=== PATIENT | female | born 1935 | race Caucasian/White ===

== ENCOUNTER 2017-04-17 12:27 | Inpatient (IN) | payer MEDICARE, OTHER ==
[2017-04-17] MEDS ORDERED: Pantoprazole 40 MG VIAL ONE (12:39)
[2017-04-17] MEDS ORDERED: Pantoprazole 80 MG, Admixture Fee 1 EACH in Sodium Chloride 0.9% 100 ML IVP SCH (12:45)
[2017-04-17] MEDS ORDERED: EPINEPHrine 1 MG/10 ML Abboject SYRINGE ONE (12:47)
[2017-04-17] MEDS ORDERED: EPINEPHrine 1 MG/ML AMP ONE (12:47)
[2017-04-17 12:53] LABS: Actual Bicarbonate (HCO3a) 15.2 mEq/L (22-26); Base Excess (BEa) -13.4 mEq/L (0 (+/-) 2.5); CO2 Tension 45.2 mmHg (35.0-45.0); Hematocrit-ABG 39.8 % (36.0-47.0); Hemoglobin (Hb) 13.5 g/dL (12.0-16.0); O2 Tension (PaO2) 81.7 mmHg (80.0-100.0); pH, Arterial 7.14 (7.35-7.45)
[2017-04-17 12:54] LABS: Analyzer IN Cardio ER; Calcium, Ionized 1.1 mmol/L (1.12-1.30); Puncture Site LRA
[2017-04-17 12:56] LABS: Hemoglobin 13.8 g/dL (12.0-16.0); Mean Corpuscular Hemoglobin 28.7 pg (27.0-31.0); Mean Corpuscular Volume 92.6 fl (81.0-99.0); Mean Platelet Volume 8.6 fL (7.4-10.4); Platelet Count 205 thou/uL (130-400); RBC Distribution Width 13.2 % (11.5-14.5); Red Blood Cell (RBC) Count 4.81 mill/uL (4.20-5.40); White Blood Cell (WBC) Count 21.3 thou/uL (4.8-10.8)
[2017-04-17 13:10] LABS: ALT (SGPT) 13 U/L (8-55); AST (SGOT) 21 U/L (5-34); Albumin 2.9 g/dL (3.4-4.8); Alkaline Phosphatase 63 U/L (40-150); Anion Gap 14 mmol/L (10-20); BUN (Urea Nitrogen) 32 mg/dL (9.8-20.1); Bilirubin, Total 0.4 mg/dL (0.2-1.2); Calc. Creatinine Clearance 0 mL/min (70-130); Calcium 8.7 mg/dL (7.8-10.44); Carbon Dioxide 13 mmol/L (23-31); Chloride 116 mmol/L (98-107); Estimated GFR-MDRD 34; Globulin 1.9 g/dL (2.4-3.5); Glucose 134 mg/dL (83-110); Potassium 3.3 mmol/L (3.5-5.1); Protein, Total 4.8 g/dL (6.0-8.3); Sodium 140 mmol/L (136-145)
[2017-04-17 13:12] LABS: Band 18 % (5-11); Lymphocytes 10 % (21-51); MDiff Complete? YES; Monocytes 4 % (0-10); Neutrophil 66 % (42-75); PLT Morphology Comment Appears Adequate; RBC Morphology Normal; Reactive Lymphocytes 1 % (0-10)
[2017-04-17] MEDS ORDERED: Sodium Bicarb 50 MEQ/50 ML Abboject 8.4% SYRINGE ONE ×2 (13:17→13:20)
[2017-04-17] MEDS ORDERED: Sodium Bicarbonate 2.4 MEQ/5 ML ONE (13:19)
[2017-04-17] MEDS ORDERED: Hydrocortisone Sod Succ/PF 100 mg/2 ml Vial ONE (13:23)
[2017-04-17] MEDS ORDERED: SODIUM CHLORIDE IVPB PRN (13:28)
[2017-04-17] MEDS ORDERED: ADMIXTURE FEE IVPB PRN (13:28)
[2017-04-17] MEDS ORDERED: KETALAR IVPB PRN (13:28)
[2017-04-17] MEDS ORDERED: Hydrocortisone Sod Succ/PF 100 mg/2 ml Vial IVP SCH (13:30)
[2017-04-17 13:35] LABS: PTT 64.3 SEC (22.9-36.1)
[2017-04-17 13:36] LABS: Prothrombin Time 45.6 SEC (12.0-14.7)
[2017-04-17 13:38] LABS: INR-International Normal Ratio 4.6
[2017-04-17 13:39] LABS: Platelet Count 205 thou/uL (130-400)
[2017-04-17 13:53] LABS: FSP-Qualitative ABNORMAL (Normal); FSP-Semiquantitative >320 mcg/mL (Less than 5)
[2017-04-17 13:56] LABS: D-Dimer Test Greater than 20.00 *mcg/mL (0.27-0.43)
[2017-04-17 13:59] LABS: Fibrinogen 19 mg/dL (253-463)
--- NOTE | 2017-04-17 14:05 | RAD ---
CHEST 1 VIEW: Date: 04/17/17 HISTORY: Emergency exam. COMPARISON: Chest 1 view dated 04/17/17. FINDINGS: Lungs are hypoinflated. The endotracheal tube tip is just above the kadie. No pneumothorax. IMPRESSION: Limited exam due to hypoinflation. Endotracheal tube tip is just above the kadie. Recommend retracte d 1-2 cm with repeat radiograph. POS: [facility]
[2017-04-17] MEDS ORDERED: Potassium Chloride 40 MEQ, Admixture Fee 1 EACH in Sodium Chloride 0.9% 250 ML 250 ML IVPB SCH (14:30)
[2017-04-17 15:05] LABS: CKMB 2.2 ng/mL (0-6.6); Troponin I 0.019 ng/mL (< 0.028)
[2017-04-17] MEDS ORDERED: Dextrose 5% in Water 1,000 ML IV PRN (15:44)
[2017-04-17] MEDS ORDERED: Ventilator Sedation Protocol 1 EACH FS SCH (15:44)
[2017-04-17] MEDS ORDERED: Dextrose 50% Abboject 50 ML SYRINGE SLOW IVP PRN (15:44)
[2017-04-17 16:10] LABS: Bilirubin Negative (Negative); Blood, Urine Moderate (Negative); Clarity CLOUDY (Clear); Glucose, Urine (Dipstick) 100 mg/dL (Negative); Leukocyte Moderate (Negative); Nitrite Negative (Negative); Protein, Urine (Dipstick) 100 mg/dL (Neg-Trace); Specific Gravity, Urine 1.011 (1.002-1.036); pH, Urine 6.5 (5.0-9.0)
[2017-04-17 16:12] LABS: Bacteria/HPF None Seen HPF (None Seen); Hyaline Casts/LPF 4-6 HYALINE CAST LPF (0-3 Hyaline); Pathc Cast-AUWi Flag 0.94 (0-2.49); Squamous Epithelial 0-3 HPF (0-3)
[2017-04-17 16:13] LABS: Yeast-AUWi Flag 36.3 (0-25.0)
[2017-04-17 16:22] LABS: Yeast-All Forms None Seen HPF (None Seen)
[2017-04-17 16:36] LABS: #Lymphocytes 0.5 thou/uL (1.20-3.40); #Monocytes 1.1 thou/uL (0.11-0.59); #Neutrophils 17.4 thou/uL (1.40-6.50); %Basophils 0.2 % (0.0-1.0); %Eosinophils 0.2 % (0.0-10.0); %Lymphocytes 2.8 % (21.0-51.0); %Monocytes 5.8 % (0.0-10.0); %Neutrophils 91.1 % (42.0-75.0); Hemoglobin 13.6 g/dL (12.0-16.0); Mean Corpuscular Hemoglobin 29.2 pg (27.0-31.0); Mean Corpuscular Volume 88.5 fl (81.0-99.0); Mean Platelet Volume 8.2 fL (7.4-10.4); Platelet Count 157 thou/uL (130-400); RBC Distribution Width 12.9 % (11.5-14.5); Red Blood Cell (RBC) Count 4.65 mill/uL (4.20-5.40); White Blood Cell (WBC) Count 19.1 thou/uL (4.8-10.8)
[2017-04-17 16:38] LABS: Actual Bicarbonate (HCO3a) 16.4 mEq/L (22-26); CO2 Tension 37.7 mmHg (35.0-45.0); O2 Tension (PaO2) 91.2 mmHg (80.0-100.0); pH, Arterial 7.26 (7.35-7.45)
[2017-04-17 16:39] LABS: Calcium, Ionized 1.2 mmol/L (1.12-1.30); Hematocrit-ABG 39.9 % (36.0-47.0); Hemoglobin (Hb) 13.4 g/dL (12.0-16.0); Puncture Site ALINE
[2017-04-17 16:41] LABS: ALV-art Gradient 146.875 (0-20)
[2017-04-17 16:52] LABS: Fibrinogen 61 mg/dL (253-463)
[2017-04-17] MEDS ORDERED: Fentanyl 20 MCG/ML 250 ML IVPB SCH (16:52)
[2017-04-17] MEDS ORDERED: Morphine 2 MG/ML SYRINGE SLOW IVP PRN (16:52)
[2017-04-17] MEDS ORDERED: DISCONTINUE PREVIOUS NARCOTIC PAIN MEDICATIONS AND BENZODIAZEPINES FS SCH (16:52)
[2017-04-17] MEDS ORDERED: Propofol 1,000 MG/100 ML VIAL IV PRN (16:52)
[2017-04-17] MEDS ORDERED: fentaNYL Citrate/PF 2,000 MCG in Sodium Chloride 0.9% 60 ML IV SCH (16:52)
[2017-04-17 16:53] LABS: PTT 40.6 SEC (22.9-36.1); Prothrombin Time 19.1 SEC (12.0-14.7)
[2017-04-17 16:54] LABS: INR-International Normal Ratio 1.6
--- NOTE | 2017-04-17 16:56 | CON ---
DATE OF CONSULTATION: 04/17/2017 GI INPATIENT CONSULTATION NOTE REQUESTING PHYSICIAN: Dr. Castaneda. REASON FOR CONSULTATION: GI bleeding. HISTORY OF PRESENT ILLNESS: Parul Pennington is an 82-year-old woman who was previously seen my GI col league, Dr. Jaclyn Treadwell. She has no significant past gastrointestinal history. Back in 2004, she had an EGD showing mild esophagitis and mild gastritis as well as some fundic gland polyps and she boyd d a colonoscopy also in 2004, which showed only small internal hemorrhoids and tortuous colon. She e vidently has no chronic gastrointestinal symptoms and she was evidently doing well all day yesterday until just this morning. At that time, family describes that she had sudden onset of acute severe ab dominal pain which was generalized. This was followed by extreme fatigue and then she started passin g bright red blood per rectum. She had several episodes of what was described as dark maroon stools prior to presentation. Upon arrival to the [facility], she was hypotensive an d she was transferred here. She has remained hypotensive and appears to be in DIC. She has signific ant acidosis. Hemoglobin is 13.8, but she has leukocytosis. No urine output since arrival and notab ly INR is elevated at 4.6. Lactic acid elevated at 6.6, fibrinogen elevated to 19. She is currently on a Levophed drip and blood pressures are stabilizing. Her mental status has declined and she is n oncommunicative with me. She is not manifesting any signs of being in pain and her abdomen is not ri gid. She has been evaluated by Dr. Rosales. Suspicion is possible acute mesenteric ischemia and isc hemic bowel. She had a CT of the abdomen and pelvis prior to transfer and this demonstrated possible thickening in the duodenum as well as possible thickening at the splenic flexure. This was a noncon trast study. The patient is currently receiving empiric antibiotics as well as IV Protonix, IV Levop hed and the plan is for her to be admitted to the ICU. REVIEW OF SYSTEMS: Unable to obtain from the patient as she is noncommunicative due to altered menta l status. PAST MEDICAL HISTORY: Hypertension, right-sided breast cancer status post modified radical mastectom y, left eye blindness, bilateral knee replacement, type 2 diabetes, hyperlipidemia, cholecystectomy, coronary artery disease, and lumbar spinal stenosis. ALLERGIES: PENICILLIN, SULFA, OXYCODONE, intolerant to STATINS. OUTPATIENT MEDICATIONS: Omeprazole 20 mg daily, aspirin 325 mg at bedtime, fish oil, Aleve, lisinopr il/hydrochlorothiazide, gemfibrozil, calcium carbonate, anastrozole, allopurinol, Xanax. FAMILY HISTORY: Noncontributory. SOCIAL HISTORY: She is . No smoking or alcohol use. She has a lot of good family support he re. I spoke at length with her daughter and other relatives. PHYSICAL EXAMINATION: VITAL SIGNS: Pulse 83, blood pressure 129/83 on Levophed drip, 100% oxygen saturation on ventilator. GENERAL: Critically ill 82-year-old woman lying in bed, mechanically ventilated and intubated. SKIN: She is pale, no jaundice, no rashes were palpable. EYES: No scleral icterus. Pupils do appear reactive. ENT: She is endotracheally intubated. LYMPH: No submandibular or supraclavicular lymphadenopathy. HEART: Regular rate and rhythm. LUNGS: Bilateral vent sounds. No wheezing appreciated. ABDOMEN: Nondistended. Bowel sounds are absent. Soft. Patient does not manifest any signs of pain upon deep palpation throughout the abdomen. No organomegaly appreciated. EXTREMITIES: Trace pretibial edema, mostly this is adipose tissue. VESSELS: Radial pulses 2+ bilaterally. NEUROLOGIC: The patient does not follow commands. LABORATORY DATA: WBC elevated to 21.3, hemoglobin normal at 13.8, platelets 205, MCV normal at 92. INR is elevated at 4.6. aPTT elevated to greater than 250, fibrinogen elevated to 19. She is acidot ic with pH 7.14, pO2 81, and pCO2 45. Lactic acid climbing from 5.9-6.6, troponin negative. BNP onl y 60, sodium 140, potassium 3.3, BUN 32, creatinine 1.45, glucose 134. FOBT is positive. LFTs are a ll normal at this time with total bilirubin 0.4, alkaline phosphatase 63, AST 21, ALT 14, and albumin 2.9. IMAGING STUDIES: CT of the head shows no acute processes. Chest x-ray shows no acute processes. Raquel ngs are hypoinflated. CT of the abdomen and pelvis showed areas of possible mild thickening in the d uodenum and at the splenic flexure, absent gallbladder, normal appearing liver and spleen. No free f luid or free air, this was as a noncontrast study. ASSESSMENT AND PLAN: 1. Gastrointestinal bleeding without anemia. 2. Severe coagulopathy, possible DIC. 3. Severe acidosis. 4. Abnormal CT showing possible duodenal and splenic flexure thickening. 5. Altered mental status. I discussed the case at length with Dr. Rosales. We both share our woody rn for possible acute ischemic bowel. The patient has had some gastrointestinal bleeding, but presen juan with acute abdominal pain. Note hemoglobin is actually normal at 13.8 despite her coagulopathy. The patient is really not stable for surgery or for endoscopy at this time. Recommend treatment of her DIC and aggressive resuscitation as you are doing. She will be admitted to the ICU. Keep her n. p.o. We will reevaluate tomorrow morning. I am not sure whether there would be any utility to upper endoscopy, but can reevaluate at that time. Continue the IV Protonix in the meantime as well. GI will continue to follow along. Please call with questions or concerns.
[2017-04-17 17:01] LABS: ALT (SGPT) 18 U/L (8-55); AST (SGOT) 35 U/L (5-34); Albumin 3.5 g/dL (3.4-4.8); Alkaline Phosphatase 68 U/L (40-150); Anion Gap 18 mmol/L (10-20); BUN (Urea Nitrogen) 33 mg/dL (9.8-20.1); Bilirubin, Total 1.3 mg/dL (0.2-1.2); Calc. Creatinine Clearance 46 mL/min (70-130); Calcium 9.2 mg/dL (7.8-10.44); Carbon Dioxide 17 mmol/L (23-31); Chloride 112 mmol/L (98-107); Estimated GFR-MDRD 33; Globulin 2.1 g/dL (2.4-3.5); Glucose 157 mg/dL (83-110); Potassium 3.6 mmol/L (3.5-5.1); Protein, Total 5.6 g/dL (6.0-8.3); Sodium 143 mmol/L (136-145)
[2017-04-17] MEDS: Sodium Chloride 0.9% 1,000 ML IV SCH (18:22)
--- NOTE | 2017-04-17 18:40 | CON ---
DATE OF CONSULTATION: 04/17/2017 CONSULTING PHYSICIAN: Dr. Rosales. REASON FOR CONSULTATION: Critical care management.45 min cc time HISTORY OF PRESENT ILLNESS: This is an 82-year-old female who presented to the emergency room earlier today with hematochezia of sudden onset. She received massive transfusion as well as reversal of coagulopathy with Kcentra. She also received FFP. History is obtained from talking with physician and reviewing the notes from the chart as the patient is intubated and is unable to give history. PAST MEDICAL HISTORY: 1. Diabetes mellitus type 2. 2. Coronary artery disease. 3. Obesity. 4. Myocardial infarction. 5. Left total knee arthroplasty. 6. Diverticulitis. 7. Breast cancer with right mastectomy. 8. Left eye blindness. 9. Deep venous thrombosis. 10. Hypertension. PAST SURGICAL HISTORY: Cholecystectomy, left total knee arthroplasty, right mastectomy. SOCIAL HISTORY: Apparently lives alone, does not consume alcohol or tobacco. FAMILY MEDICAL HISTORY: Remarkable for heart disease. MEDICATIONS PRIOR TO ADMISSION: List not known at this time. ALLERGIES: OXYCODONE, PENICILLINS, SULFONAMIDES. REVIEW OF SYSTEMS: Twelve point review of systems cannot be obtained as the patient is currently on mechanical ventilation, intubated. PHYSICAL EXAMINATION: VITAL SIGNS: Heart rate 80, blood pressure 143/83, O2 sat 91%, respiratory rate 21. GENERAL: The patient is intubated and is on mechanical ventilation. She will wake up and nod to questions. HEENT: Pupils react. Sclerae are anicteric. Oropharynx clear. NECK: No adenopathy or JVD. LUNGS: Diminished breath sounds in the bases with some crackles bilaterally. CARDIOVASCULAR: S1, S2, slightly tachycardic without murmur. ABDOMEN: Obese, soft, nontender to deep palpation. EXTREMITIES: No clubbing, cyanosis, or edema. NEUROLOGIC: Moves all 4 extremities. SKIN: No rashes, bruising or jaundice. LABORATORY DATA: White blood cell count 21.3, hematocrit 44.6, platelet count 205 with 66% neutrophils, 18% bands. INR was 4.6. D-dimer greater than 20, pH 7.14, pCO2 of 45, pO2 of 82 that was on SIMV rate 12, tidal volume 500, PEEP 5, pressure support 10, FiO2 of 60%. Sodium 140, potassium 3.3, chloride 116, CO2 of 13, BUN 32, creatinine 1.4, glucose 134. Lactate 6.6, troponin 0.019, TSH 1.55, albumin 2.9. IMAGING: Chest x-ray showed hint of the endotracheal tube being in the left main stem bronchus. There is some atelectasis in the left base. CT of the abdomen demonstrated duodenal splenic flexure areas of thickening, perhaps representing the duodenitis or colitis. ASSESSMENT: 1. Hypovolemic shock from blood loss due to hematochezia. 2. Acute respiratory failure. 3. Severe metabolic acidosis. 4. Coagulopathy. PLAN: The patient is currently being resuscitated with blood products. She is on mechanical ventilation. I will adjust the settings. The patient is having coagulation parameters and H and H monitored. She will be transfused as needed. I will follow along with you. JUANJO
[2017-04-17] MEDS: Norepinephrine 8 MG/0.9% NS 250 ML IVPB SCH ×2 (19:06→23:23)
--- NOTE | 2017-04-17 19:49 | HP ---
CHIEF COMPLAINT: GI bleeding and shock. HISTORY: Ms. Pennington is an 82-year-old woman who presented to the [place] ER with abdominal pain and weakness. By report, she had been totally normal the night before, called a friend the following morning to ask her for help. She stated that she needed to get up to the bathroom, but was too weak to do so. When her friend went to help her, she was exhibiting severe abdominal pain and was very unsteady on her feet and fell when she tried to ambulate. They called an ambulance and took her to [place] where she passed two hard balls of stool and then a large amount of blood mixed with stool. This was red in color, but not bright red, no reports of clots. During this time, the patient had hypotension and decreased level of consciousness and was intubated. She had a CT scan performed at [place] with no IV and no p.o. contrast. This showed possible thickening of the duodenum and possible stranding around the splenic flexure, but due to lack of contrast, this was inconclusive. The patient does have known cardiovascular disease and calcified arteries on her noncontrast CT, but no history of food fear, or weight loss and is not on any blood thinners. She has no history of arrhythmias or coagulopathy. She was transferred to [place] and received 3 units of packed red blood cells and 2 units of plasma and had a femoral line placed by the ER doctor. I was consulted at that point and the patient was receiving a unit of FFP and had been started on Levophed to support her blood pressure. By report when she arrived in the emergency room, her blood pressure was in the 60s systolic, but on Levophed it came up to the 90s-100s systolic. She had a Harris catheter placed in [place], but no urine in the Harris catheter bag on her arrival or during the initial part of her hospital stay. She had a fluctuating level of consciousness; would open her eyes and sometimes respond to yes/no questions. Her family and friends all deny any preexisting abdominal complaints. She had just seen her hotel security officer for some shortness of breath and he had performed a stress test, but they had not received the results yet. I contacted the hotel security officer's partner who is aviation program manager this weekend and she looked up the results and this did show some anterior ischemia. She had a fairly normal heart catheterization 10 years ago, however. Since her arrival in the emergency room, she has had a few smears of blood tinged stools, but no large amount of bloody stool. Only her ABG was back at the time that I first evaluated her and this showed severe acidosis with a base deficit of 13, so she was given IV bicarbonate for this and I ordered additional FFP and cryoprecipitate based on labs in [place] which showed evidence of coagulopathy. PAST MEDICAL HISTORY: Hypertension, hyperlipidemia, breast cancer, and osteoarthritis. She has diet controlled diabetes and negative colonoscopy in her 70s. PAST SURGICAL HISTORY: Right modified radical mastectomy, bilateral knee replacements, cholecystectomy and appendectomy. ALLERGIES: Her family reports that she is allergic to PENICILLIN and SULFA DRUGS and she has intolerance to statins documented in her chart. OUTPATIENT MEDICATIONS: Include lisinopril/hydrochlorothiazide 20/12.5 mg, although her family is unsure whether she takes 1 or 2 of these twice a day, amlodipine 0.5 mg p.o. daily, clonidine p.r.n. high blood pressure, aspirin 325 mg p.o. daily, allopurinol 100 mg p.o. daily, omeprazole 20 mg p.o. b.i.d., lisinopril 20 mg p.o. daily although her family is also unsure whether she is taking this, gemfibrozil 600 mg p.o. b.i.d., fish oil and a multivitamin containing calcium, magnesium, zinc, and vitamin D3. FAMILY HISTORY: Noncontributory. REVIEW OF SYSTEMS: Not obtainable, but per the family, she did not have any complaints prior to her current illness and has not had any episodes of bleeding previously. PHYSICAL EXAMINATION: GENERAL: The patient is awake and intermittently responsive to yes/no questions. At the time that I first evaluated her, she indicated that she had some tenderness to palpation of her abdomen, but no pain when I was not pushing on her abdomen. She does not exhibit any rigidity, rebound or guarding and I was unable to identify any focally tender area. She has a healed right upper quadrant incision and no palpable masses. Digital rectal examination revealed some reddish brown stool without marycruz blood or clots. No palpable masses and no large amount of stool in the rectal vault. NECK: Supple, without lymphadenopathy. No cervical bruits. HEART: Regular in its rate and rhythm without murmurs, rubs or gallops. LUNGS: Clear to auscultation bilaterally. EXTREMITIES: Warm and well perfused. She has palpable radial pulses, although I do not appreciate pedal pulses. She has very minimal edema at the ankle which is nonpitting. NEUROLOGIC: Unable to fully evaluate; the patient does move her extremities to command. PSYCHIATRIC: Unable to evaluate although she intermittently answers yes/no questions appropriately. During her stay in the emergency room, her blood pressure and heart rate remained stable on the Levophed. She did begin to have some urine output after the FFP and became more responsive as well through her ER stay. She continued to deny abdominal pain, but did endorse some tenderness to palpation. Again, this was nonfocal. LABORATORY: Her other labs began to come back during her ER stay. Her white count was elevated at 21, it had been 17 in [place]. Hematocrit has not changed much from 41-44 after 3 units of blood, platelets were still normal at 205. She did have a bandemia of 18. Her coags continued to be abnormal. Her PTT which had been greater than 250, was 64.3, INR 4.6 and fibrinogen 19. Electrolytes showed low potassium of 3.3, bicarbonate 13, BUN and creatinine were elevated at 32 and 1.45, up slightly from [place] when they had been 30 and 1.35. Her LFTs were unremarkable, but her lactate was high at 6.6. Troponin at [place] had been normal as had a BNP. IMAGING: I reviewed the CT and I agree with the written report. ASSESSMENT: Lower gastrointestinal bleed of unclear etiology. Ischemic and infectious colitis are both within the differential diagnosis. Diverticular bleeding is possible, although less likely. The patient exhibited severe abdominal pain this morning according to her family, but is apparently pain free at this time. So, hopefully this was a low flow rather than an occlusive episode of ischemia, from which her bowel could potentially recover. She has not had any evidence of ongoing significant blood loss, but will require close monitoring and continued resuscitation. Given her severe coagulopathy, she is not a candidate for endoscopy or surgery at this time. I believe the bleeding is lower gastrointestinal in etiology, not upper. I have discussed her case with Dr. Toro of Gastroenterology who was also been at the patient's bedside. I have spoken with the family. She is in very critical condition at this point with multiorgan system failure with anuria, respiratory failure, hypotension requiring pressors and coagulopathy which may represent DIC. She will need to be aggressively treated medically to stabilize her and may be able to tolerate endoscopy tomorrow. We are working aggressively to correct her coagulopathy and we will recheck her coags after she has gotten her second unit of FFP and her cryoprecipitate. At that point, I plan to recheck all of her labs to see if she needs additional platelets or blood products as well. However, as I said , it does not appear that she has ongoing severe bleeding. I have written admit orders to the ICU and requested hourly urine output, monitoring, so that we can assess the adequacy of her resuscitation. I have written for antibiotics to cover colitis and a proton pump inhibitor drip for stress ulcer prophylaxis. During her time in the emergency room, an NG tube was placed and this had bilious nonbloody output, so I do not believe that she currently has any upper GI bleeding. A radial arterial line was placed in the emergency room to more closely monitor her blood pressure and monitor her need for continued pressors. We will try to get the Levophed off if her condition improves. If she develops signs of peritonitis, she may require surgical exploration. Her family is aware of the very serious nature of her illness and they want to pursue aggressive treatment. They are unaware of any advanced directive or living will and she is a FULL CODE at this time. A total of 3 hours of critical care was spent in the evaluation and management of this patient independence of procedures. JUANJO
--- NOTE | 2017-04-17 19:49 | OP ---
PROCEDURE PERFORMED: Placement of left radial arterial line. DESCRIPTION OF PROCEDURE: After informed consent was obtained, the left radial artery was identified and the skin prepped with alcohol and an attempt was made to access this, but the wire would not thr ead. An ultrasound was used to direct an attempt at a higher level and the arterial line was able to be threaded successfully into the radial artery using the Seldinger technique. The arterial line wa s secured to the monitoring line and the pressures corresponded with cuff pressures. The arterial li ne was secured to the skin with sutures and tape and the wrist was stabilized on the wrist board. Es timated blood loss was minimal. There were no complications. There were no specimens. Patient jevon rated the procedure well.
[2017-04-17] MEDS: metroNIDAZOLE 500 MG in Premix Bag 1 BAG IVPB SCH (20:50)
--- NOTE | 2017-04-17 21:37 | CON ---
DATE OF CONSULTATION: 04/17/2017 INDICATION FOR CONSULTATION: An 82-year-old female who was admitted with septic shock and DIC with G I bleeding. We were asked to see her for cardiac evaluation. She does have a history of coronary ar ange disease in the past. She recently underwent stress testing and was found to have anterior wall ischemia on a nuclear study. She has had previous evaluation in the past and they were unremarkable. She had a study performed in 2015, which showed no evidence of ischemia. She did have a cardiac ca theterization in 2006 which showed some indication of coronary artery disease with a less than 20% st enosis both in the right coronary and the mid left anterior descending artery with a normal ejection fraction. She has continued to have a normal ejection fraction and was recently seen in the office w ithout any complications or complaints from a cardiac standpoint. She apparently lives at home and d eveloped the sudden onset of abdominal pain and hematochezia that presented to the emergency room and also was found to be pancytopenia; however, when developed, she had coagulopathy what appears to be DIC. INR was 4.6. She was given platelets, 3 units of packed red blood cells, 4 units of fresh froz en plasma, and one cryoprecipitate. At this time, she is actually intubated; however, is alert. She seems to comprehend and understand. She does try to nod her head to answer some questions, otherwis e appears to be more stable. Her blood pressure is 104/47, heart rate is 84 at this time. Respirato ry rate is 21. O2 saturations are actually 96% and she is afebrile. Her EKG did show a normal sinus rhythm with a right bundle-branch block and left anterior fascicular block, but no acute changes oth erwise are noted and she appears to be stable from a cardiac standpoint otherwise. She has been comp laining of some dyspnea on exertion and recently was evaluated in the office by doing the stress test for the dyspnea. She had denied any chest pain at that time. She has had some problems with low bl ood pressures in the past and blood pressure medications have also been adjusted. PAST MEDICAL HISTORY: Significant for mild coronary artery disease, bilateral knee replacement. She is blind in the left eye. She has had a history of DVT in the past. She has had a cholecystectomy. She has history of spinal stenosis, peripheral vascular disease, dyslipidemia, diabetes, and hypert ension. She has had breast cancer with a right mastectomy. She has had a cholecystectomy. ALLERGIES: She is allergic to OXYCODONE, SULFA, SULFONAMIDE ANTIBIOTICS and PENICILLIN. FAMILY HISTORY: Noncontributory at this time. SOCIAL HISTORY: No alcohol or tobacco abuse. REVIEW OF SYSTEMS: Not obtainable. The patient is on the ventilator at this time, but recently in t he office, had been doing quite well except for the dyspnea. She denied any chest pain, palpitations , or syncope. She did have some lower extremity edema; however, on the recent evaluation in the [facility]. PHYSICAL EXAMINATION: GENERAL: Reveals an elderly female who is on the ventilator. She is alert. VITAL SIGNS: Her blood pressure as noted above is now 136/66, heart rate is 91 and regular. HEENT: Shows the head to be normocephalic, atraumatic. Carotid pulses are present. I cannot hear a ny significant bruits at this time. CHEST: Clear to auscultation anteriorly. CARDIOVASCULAR: Reveals a regular rhythm. She has a 2/6 systolic murmur at the base. Otherwise, no significant abnormalities were noted. ABDOMEN: Soft and nontender. Positive bowel sounds are present. EXTREMITIES: Showed no clubbing or cyanosis. She does have a large contusion of right lateral leg a fter a previous fall, apparently. Pedal pulses are difficult to palpate, but popliteal pulses are pr esent. NEUROLOGIC: She appears to be awake and alert, but is on the ventilator at this time. SKIN: Warm and dry. LABORATORY DATA: Shows hemoglobin of 13.6 with WBC of 19.1, platelet count was 157, potassium was 3. 6, BUN 33, creatinine 1.49. Lactic acid was 6.0. Total bilirubin was 1.3. Her troponin I was negat ricco. D-dimer was greater than 20. She also had 18 bands noted on the differential from the CBC. IMPRESSION AND PLAN: 1. Acute gastrointestinal bleed which could possibly due to ischemic bowel. This has been evaluated by the general surgeons, also she will be seen by the floor molder. She appears to have only minimal bleeding at this time. She did have one small stool since being in the Intensive Care Unit, which appears to be more watery, but just a small amount of blood. 2. Coagulopathy. I hope this will be stabilized after she has been given medical treatment. 3. Acute respiratory failure. She remains on the ventilator. 4. Hypovolemic shock with metabolic acidosis. 5. Disseminated intravascular coagulation. The INR was 4.6. We will continue to monitor very caremikey tran with you. Her stress test, however, was abnormal, but she appears to be relatively stable at th is time. She denied any chest pain. An EKG does not show any acute ST segment changes to indicate a ny type of ischemia and cardiac enzymes remain negative, we will be more than happy to continue to fo llow the patient with you. 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 We will continue to monitor this also. I will try and determine whether or not this is not a new finding in this lady. She has had a previous right bundle-branch block with a left anterior fa scicular block in the past. At this time, from a cardiac standpoint, she appears to be stable.
[2017-04-17] MEDS ORDERED: Sodium Bicarb 50 MEQ/50 ML Abboject 8.4% SYRINGE IVP SCH (22:15)
[2017-04-17] MEDS ORDERED: Sodium Chloride 0.9% 1,000 ML IV SCH (22:15)
[2017-04-17 23:46] LABS: CO2 Tension 28.1 mmHg (35.0-45.0); pH, Arterial 7.41 (7.35-7.45)
[2017-04-17 23:47] LABS: Actual Bicarbonate (HCO3a) 17.4 mEq/L (22-26); Base Excess (BEa) -5.7 mEq/L (0 (+/-) 2.5); O2 Tension (PaO2) 58.2 mmHg (80.0-100.0)
[2017-04-17 23:48] LABS: Calcium, Ionized 1.2 mmol/L (1.12-1.30); Puncture Site ALINE
[2017-04-17 23:49] LABS: ALV-art Gradient 191.875 (0-20)
[2017-04-18 00:08] LABS: INR-International Normal Ratio 1.3; PTT 31.2 SEC (22.9-36.1); Prothrombin Time 16.5 SEC (12.0-14.7)
[2017-04-18 00:24] LABS: Band 23 % (5-11); Hemoglobin 12.6 g/dL (12.0-16.0); Lymphocytes 4 % (21-51); MDiff Complete? YES; Mean Corpuscular HGB CONC 33.9 g/dL (32.0-36.0); Mean Corpuscular Hemoglobin 29.5 pg (27.0-31.0); Mean Platelet Volume 8.3 fL (7.4-10.4); Neutrophil 73 % (42-75); PLT Morphology Comment Appears Adequate; Platelet Count 158 thou/uL (130-400); Red Blood Cell (RBC) Count 4.28 mill/uL (4.20-5.40); White Blood Cell (WBC) Count 15.5 thou/uL (4.8-10.8)
[2017-04-18 01:03] LABS: Anion Gap 14 mmol/L (10-20); BUN (Urea Nitrogen) 36 mg/dL (9.8-20.1); Calc. Creatinine Clearance 43 mL/min (70-130); Calcium 8.6 mg/dL (7.8-10.44); Carbon Dioxide 19 mmol/L (23-31); Chloride 115 mmol/L (98-107); Estimated GFR-MDRD 30; Glucose 144 mg/dL (83-110); Sodium 144 mmol/L (136-145)
[2017-04-18 03:47] LABS: INR-International Normal Ratio 1.3
[2017-04-18 03:48] LABS: PTT 33.4 SEC (22.9-36.1)
[2017-04-18] MEDS: metroNIDAZOLE 500 MG in Premix Bag 1 BAG IVPB SCH ×4 (03:50→21:21)
[2017-04-18] MEDS: Sodium Chloride 0.9% 1,000 ML IV SCH ×2 (03:50→08:15)
[2017-04-18 04:01] LABS: Band 35 % (5-11); Hemoglobin 12.7 g/dL (12.0-16.0); Lymphocytes 3 % (21-51); MDiff Complete? YES; Mean Corpuscular HGB CONC 33.1 g/dL (32.0-36.0); Mean Corpuscular Hemoglobin 28.8 pg (27.0-31.0); Mean Platelet Volume 8.4 fL (7.4-10.4); Monocytes 2 % (0-10); Neutrophil 60 % (42-75); PLT Morphology Comment Appears Adequate; Platelet Count 165 thou/uL (130-400); RBC Distribution Width 13.1 % (11.5-14.5); Red Blood Cell (RBC) Count 4.39 mill/uL (4.20-5.40); White Blood Cell (WBC) Count 13.1 thou/uL (4.8-10.8)
[2017-04-18 04:04] LABS: ALT (SGPT) 18 U/L (8-55); AST (SGOT) 32 U/L (5-34); Albumin 3.2 g/dL (3.4-4.8); Alkaline Phosphatase 48 U/L (40-150); Anion Gap 15 mmol/L (10-20); BUN (Urea Nitrogen) 38 mg/dL (9.8-20.1); Calc. Creatinine Clearance 40 mL/min (70-130); Calcium 8.5 mg/dL (7.8-10.44); Carbon Dioxide 18 mmol/L (23-31); Chloride 115 mmol/L (98-107); Estimated GFR-MDRD 28; Globulin 1.9 g/dL (2.4-3.5); Glucose 136 mg/dL (83-110); Protein, Total 5.1 g/dL (6.0-8.3); Sodium 144 mmol/L (136-145)
[2017-04-18] MEDS: Pantoprazole 80 MG in Sodium Chloride 0.9% 100 ML IVP SCH ×3 (06:04→17:08)
[2017-04-18 07:02] LABS: Actual Bicarbonate (HCO3a) 17.8 mEq/L (22-26); Base Excess (BEa) -8.3 mEq/L (0 (+/-) 2.5); CO2 Tension 31.1 mmHg (35.0-45.0); Hematocrit-ABG 35.5 % (36.0-47.0); Hemoglobin (Hb) 12.2 g/dL (12.0-16.0); O2 Tension (PaO2) 76.1 mmHg (80.0-100.0); pH, Arterial 7.38 (7.35-7.45)
[2017-04-18 07:03] LABS: ALV-art Gradient 170.225 (0-20); Calcium, Ionized 1.2 mmol/L (1.12-1.30); Puncture Site ALINE
[2017-04-18] MEDS ORDERED: Sodium Chloride 0.9% 1,000 ML IV SCH (08:00)
[2017-04-18] MEDS: Lorazepam 2 MG/ML VIAL SLOW IVP PRN ×5 (08:13→19:20)
--- NOTE | 2017-04-18 08:41 | RAD ---
CHEST 1 VIEW: Date: 04/18/17 HISTORY: Intubated patient. COMPARISON: Chest 1 view from prior day. FINDINGS: Patient intubated with endotracheal tube tip in good position. Enteric tube tip is in the gastric bod y, side port at GE junction. Moderate size right effusion. Atelectatic changes both lung bases. IMPRESSION: 1. Moderate size right pleural effusion, slightly increased. 2. Enteric tube tip at the gastric body with side port at GE junction. Recommend advancing 3.0 cm. POS: JAMIL
[2017-04-18] MEDS: Norepinephrine 8 MG/0.9% NS 250 ML IVPB SCH ×2 (09:22→19:00)
--- NOTE | 2017-04-18 09:34 | PRG ---
DATE OF SERVICE: 04/18/2017 Thirty-five minutes critical care time. SUBJECTIVE: The patient remains intubated in the Critical Care Unit. She is able to wake up and und erstand speech and follow commands, three daughters are in the room with her today. PHYSICAL EXAMINATION: VITAL SIGNS: Temperature is 99.7 with a T-max of 99.7, pulse 78, blood pressure 135/56. She is curr ently on Levophed at 35 mcg per minute. She is receiving fentanyl for sedation. A 24-hour intake wa s 3880 plus what was received in the ER, output has been 738. HEENT: Pupils are reactive. Sclerae are anicteric. Oropharynx clear. NECK: No JVD. LUNGS: Clear to auscultation anteriorly. CARDIOVASCULAR: S1, S2 regular, without murmur. ABDOMEN: Tender to deep palpation. There are no bowel sounds. EXTREMITIES: No clubbing, cyanosis, or edema. LABORATORY DATA: PH 7.38, pCO2 of 31, pO2 of 76 on SIMV rate 24, tidal volume 500, PEEP 5, pressure support 10, FIO2 40%. White blood cell count 13, hemoglobin 12, hematocrit 38.2, platelet count 165. INR is 1.3, PTT 33.4, sodium 144, potassium 4, chloride 115, CO2 of 18, BUN 38, creatinine 1.7, glu cose 136. Albumin 3.2. Chest x-ray shows what appears to be a small right pleural effusion versus l obar atelectasis. ASSESSMENT: 1. Likely ischemic colitis with large volume lower gastrointestinal bleeding which has now stopped. 2. History of diabetes mellitus type 2. 3. Acute respiratory failure requiring mechanical ventilation. 4. Metabolic acidosis which has improved. 5. Coagulopathy, which has resolved. PLAN: 1. We will try to decrease the Levophed as the high dose of Levophed is probably not the best thing for ischemic colitis. 2. Add Ativan for sedation to the fentanyl. 3. No plans to wean mechanical ventilation until the ischemic colitis issue is better worked up by [facility] en[facility] Surgery and GI. I reviewed her orders and agree with the antibiotics and IV fluids.
[2017-04-18 09:41] LABS: Lactic Acid 2.2 mmol/L (0.5-2.2)
--- NOTE | 2017-04-18 11:24 | PRG ---
DATE OF SERVICE: 04/18/2017 GI INPATIENT DAILY PROGRESS NOTE SUBJECTIVE: Ms. Pennington has remained intubated and on Levophed for blood pressure support. Her coagu lopathy appears to have been corrected. She has regained consciousness and is able to answer questio ns and she reports only some mild abdominal pain which appears to be on the left side. As far as sto ol output, she has had no melena. She did have a small amount of bright red blood with some stool th is morning. Her hemoglobin has remained stable currently at 12.7, INR down to 1.3. Lactate has impr robert down to 2.2, but creatinine continues to climb and urine output has been minimal. PHYSICAL EXAMINATION: VITAL SIGNS: Blood pressure 120/49 on Levophed, heart rate 76, 100% oxygen saturation on ventilator, temperature is 99.7 degrees. GENERAL: Critically ill, intubated, able to nod and shake her head and answered to questions. HEART: Regular rate and rhythm. LUNGS: Decreased breath sounds in the right base. ABDOMEN: Bowel sounds hypoactive, but present, soft, no guarding or rebound tenderness. There is so me tenderness to palpation in the left upper quadrant. EXTREMITIES: No peripheral edema. LABORATORY STUDIES: Sodium 144, potassium 4.0, BUN 38, creatinine 1.72. Lactic acid down to 2.2. L FTs remain normal, total bilirubin 1.0, alkaline phosphatase 48, AST 32, ALT 18. Urinalysis shows gr eater than 50 WBCs, INR down to 1.3. ABG much improved with pH 7.38, WBC 13.1, hemoglobin 12.7, and platelets 165. Urine cultures growing gram negative rods. Blood culture showing no growth to date. ASSESSMENT AND PLAN: 1. Systemic shock. Initially this was thought to perhaps represent hemorrhagic shock, but I really do not think that is the case. Her hemoglobin looks great and declined only minimally yesterday. Th ere has been really minimal overt bleeding overnight in this morning from the gastrointestinal tract. She remains hypotensive requiring Levophed and I wonder if this represents septic shock. Note, she does have urinary tract infection. The acuity of her presentation is a little bit unusual for this. However, I do not think that this all represents a consequence of massive blood loss. 2. Gastrointestinal bleeding, appears to be lower gastrointestinal source. 3. Coagulopathy, much improved. 4. Acute renal failure, likely secondary to shock. 5. Abnormal CT of the gastrointestinal tract showing possible thickening in the duodenum and around the splenic flexure. My impression regarding her gastrointestinal bleeding is that this is likely a consequence of acute ischemic colitis which is a consequence of her hypotensive state upon presentati on. This looks less and less like acute catastrophic mesenteric ischemia. If this does represent is chemic colitis, then the prognosis should be good from a gastrointestinal perspective. I discussed t he case with Dr. Rosales. At this point, we will plan to administer bowel preparation through the or ogastric tube tonight, and proceed with colonoscopy and esophagogastroduodenoscopy tomorrow. I discu ssed this with the patient's family as well.
--- NOTE | 2017-04-18 12:39 | PRG ---
DATE OF SERVICE: 04/18/2017 SUBJECTIVE: Ms. Pennington denies any pain or shortness of breath. She does still report tenderness to palpation of her abdomen diffusely, but no place more than another. She is more alert today and communicating with a white board. Her Levophed was turned up slightly overnight, but is now back down to 25. Urine output has been 20-40 mL per hour. She did receive some additional cryoprecipitate and fluids last night. This morning her heart rate and blood pressure are normal on Levophed and her coagulopathy has corrected. Her H&H are stable and her nurse reports that she has only had a few smears of bloody stool. OBJECTIVE: HEART: She has a systolic murmur, but her heart rate is regular and her rhythm is regular. LUNGS: Clear anteriorly. ABDOMEN: Still quiet, diffusely mildly tender, but she does not exhibit rigidity, rebound, or guarding. EXTREMITIES: Warm and well perfused with normal capillary refill. LABORATORY DATA: Her labs have all improved; her lactate and fibrinogen have corrected. The only exception is her BUN and creatinine have continued to slowly climb. Urine culture showed gram negative rods, but fewer than 5000 colony forming units, so ID and sensitivities have not been performed. ASSESSMENT: Likely ischemic colitis of unclear etiology. Her family does report that her blood pressure fluctuates and she has had some drops in her blood pressure. She had a fairly severe coagulopathy, but this has corrected, so it may have been primarily consumption rather than disseminated intravascular coagulation. I cannot find any source for sepsis that could have set this off. She did have some gram negative rods in her urine, but only less than 5000 colony forming units and her chest x-ray remained fairly clear except for a small effusion. Given her clinical improvement and correction of her lactate, I think it is unlikely that she has necrotic bowel, but ischemic bowel is still the most likely diagnosis. I have discussed her case with Dr. Toro of Gastroenterology, and he is going to perform a gentle bowel prep and plan on endoscopy tomorrow. As long as full thickness necrosis is not seen, we will continue to manage this conservatively. JUANJO
[2017-04-18] MEDS: Sodium Bicarbonate 150 MEQ in Dextrose 5% in Water 1,000 ML IV SCH ×2 (15:17)
[2017-04-18] MEDS ORDERED: GoLYTELY 4,000 ml Bottle PER TUBE SCH (18:00)
--- NOTE | 2017-04-18 22:01 | CON ---
DATE OF CONSULTATION: 04/18/2017 CONSULTING PHYSICIAN: Silvia Scott M.D. REQUESTING PHYSICIAN: Dr. Rosales. REASON FOR CONSULTATION: Acute kidney injury and metabolic acidosis. IMPRESSION: 1. Acute kidney injury. This is likely hemodynamically mediated in the context of low blood pressur e and massive gastrointestinal blood loss. 2. Metabolic acidosis related to acute kidney injury plus or minus ischemic bowel with . PLAN: 1. I am in support of weaning this patient off pressors if we suspect ischemic bowel. 2. Change the current normal saline to a bicarb based infusion to avoid reexpansion acidosis and hop efully the correction of the metabolic acidosis will improve the hemodynamics the pressors to t he point that one can begin to successfully wean off the pressors. 3. Avoid potentially nephrotoxic agents and renally dose all medications. HISTORY OF PRESENT ILLNESS: History is that of an 82-year-old female patient transferred for [facility], where the patient presented with a sudden onset of massive gastrointestinal bleed. The pat ient on presentation was also noted to be severely coagulopathic with a picture of DIC/consumption co agulopathy. The patient received various amounts of blood products prior to being transferred to [facility] place already intubated. I could not get much of any history from this patient, who is already int ubated. As a result of the finding of metabolic acidosis and rising creatinine and low urinary outpu t on presentation, decision has been taken by the primary team to involve Renal in the management of this case. PAST MEDICAL HISTORY: Significant for type 2 diabetes, coronary artery disease, status post ME, dive rticulitis, breast carcinoma status post right mastectomy, left eye blindness, DVT, and hypertension. SOCIAL HISTORY: According to record, no alcohol, no tobacco. Lives alone. No illicit drug use. FAMILY HISTORY: Not significantly related to the presenting illness except easy bruisability, which is noted on the patient and also the daughter. ALLERGIES: OXYCODONE, PENICILLIN, and SULFONAMIDES. REVIEW OF SYSTEMS: Could not be obtained from this patient given the fact the patient is intubated a nd sedated. PHYSICAL EXAMINATION: GENERAL: The patient was found to be sedated and intubated and noted with the following vital signs. VITAL SIGNS: Blood pressure 117/45 with a pulse of 72, respiratory rate of 24, O2 sat 94% on pressor s. HEENT: Unremarkable for endotracheal tube in place. CARDIOVASCULAR SYSTEM: First and second heart sounds were heard. RESPIRATORY SYSTEM: Reveals vented sounds. DIGESTIVE SYSTEM: revealed positive bowel sounds. EXTREMITIES: Chronic peripheral lymphedema. NEUROLOGIC: The patient is sedated and intubated. SUMMARY: An 82-year-old female patient, who presented here status post massive gastrointestinal blee d with picture of consumptive coagulopathy as well as acute kidney injury. Thank you for this consultation. We will follow with you.
[2017-04-19] MEDS: Sodium Bicarbonate 150 MEQ in Dextrose 5% in Water 1,000 ML IV SCH ×6 (00:45→20:05)
[2017-04-19] MEDS: Pantoprazole 80 MG in Sodium Chloride 0.9% 100 ML IVP SCH ×3 (01:09→20:05)
[2017-04-19] MEDS: metroNIDAZOLE 500 MG in Premix Bag 1 BAG IVPB SCH ×4 (02:22→20:10)
[2017-04-19] MEDS: Norepinephrine 8 MG/0.9% NS 250 ML IVPB SCH (04:08)
[2017-04-19 04:18] LABS: #Lymphocytes 0.7 thou/uL (1.20-3.40); #Monocytes 0.3 thou/uL (0.11-0.59); #Neutrophils 6.7 thou/uL (1.40-6.50); %Basophils 0.1 % (0.0-1.0); %Eosinophils 0.5 % (0.0-10.0); %Lymphocytes 9.2 % (21.0-51.0); %Neutrophils 86.2 % (42.0-75.0); Mean Corpuscular HGB CONC 33.1 g/dL (32.0-36.0); Mean Corpuscular Hemoglobin 28.9 pg (27.0-31.0); Mean Corpuscular Volume 87.1 fl (81.0-99.0); Mean Platelet Volume 8.8 fL (7.4-10.4); Platelet Count 125 thou/uL (130-400); RBC Distribution Width 13.2 % (11.5-14.5); White Blood Cell (WBC) Count 7.7 thou/uL (4.8-10.8)
[2017-04-19 04:21] LABS: PTT 29.4 SEC (22.9-36.1)
[2017-04-19 04:25] LABS: INR-International Normal Ratio 1.3; Prothrombin Time 16.6 SEC (12.0-14.7)
[2017-04-19 04:26] LABS: Anion Gap 11 mmol/L (10-20); BUN (Urea Nitrogen) 36 mg/dL (9.8-20.1); Calc. Creatinine Clearance 44 mL/min (70-130); Calcium 8.2 mg/dL (7.8-10.44); Carbon Dioxide 22 mmol/L (23-31); Chloride 115 mmol/L (98-107); Estimated GFR-MDRD 31; Glucose 160 mg/dL (83-110); Potassium 3.2 mmol/L (3.5-5.1); Sodium 145 mmol/L (136-145)
[2017-04-19 07:00] LABS: Actual Bicarbonate (HCO3a) 21.4 mEq/L (22-26); Base Excess (BEa) -0.7 mEq/L (0 (+/-) 2.5); CO2 Tension 27.5 mmHg (35.0-45.0); O2 Tension (PaO2) 83.2 mmHg (80.0-100.0); pH, Arterial 7.51 (7.35-7.45)
[2017-04-19 07:01] LABS: ALV-art Gradient 167.625 (0-20); Calcium, Ionized 1.2 mmol/L (1.12-1.30); Hematocrit-ABG 30.5 % (36.0-47.0); Hemoglobin (Hb) 10.8 g/dL (12.0-16.0); Puncture Site LINE
--- NOTE | 2017-04-19 08:04 | RAD ---
PORTABLE CHEST 1 VIEW: DATE: 04/19/17. TIME: 5:01 a.m. HISTORY: Respiratory failure. FINDINGS: Comparison is made with the exam of the previous day. Endotracheal and nasogastric tubes are redemonstrated. Heart size is stable. There are bilateral pl eural effusions, right greater than left. Left pleural effusion appears to be new. No pneumothorace s are seen. POS: [facility]
[2017-04-19] MEDS ORDERED: Potassium Chloride 40 MEQ in Premix Bag 1 BAG IVPB SCH (08:15)
--- NOTE | 2017-04-19 08:39 | PRG ---
DATE OF SERVICE: 04/19/2017 Thirty-five minutes critical care time. Ms. Pennington remains intubated on mechanical ventilation. She will wake up and follow commands. One o f her daughters is at the bedside. PHYSICAL EXAMINATION: VITAL SIGNS: On exam her temperature is 98.2 with T-max 99.7, pulse 87, blood pressure 139/61. She remains on Levophed at 15 mcg per minute, 24-hour intake is a 6280, output 1190. HEENT: Unremarkable. NECK: No JVD. LUNGS: Coarse rhonchi bilaterally. CARDIOVASCULAR: S1, S2 regular. ABDOMEN: Tender to deep palpation. EXTREMITIES: Trace edema throughout. LABORATORY DATA: White blood cell count 7.7, hemoglobin 11, hematocrit 33.1, platelet count 125. IN R 1.3, pH 7.51, pCO2 27, PO2 83, this is on SIMV rate 24, tidal volume 500, PEEP 5, pressure support 10, FiO2 40%. Sodium 145, potassium 3.2, chloride 115, CO2 22, BUN 36, creatinine 1.5, glucose 160. Chest x-ray continues to show some volume loss in the right lower lobe. ASSESSMENT: 1. Acute respiratory failure requiring mechanical ventilation. 2. Suspected ischemic colitis with gastrointestinal bleeding. 3. Diabetes mellitus type 2. 4. Improved metabolic acidosis. 5. Mild renal insufficiency. 6. Hypokalemia. PLAN: 1. I will decrease the patient's respiratory rate on mechanical ventilation. 2. Wean Levophed as tolerated. 3. I would suggest decreasing IV fluids.
--- NOTE | 2017-04-19 09:18 | PRG ---
DATE OF SERVICE: 04/18/2017 SUBJECTIVE: Ms. Pennington was recently admitted for ischemic colitis and GI bleed. She is currently in tubated. Heart rate and blood pressure appears stable. She is on low dose norepinephrine. PHYSICAL EXAMINATION: VITAL SIGNS: Blood pressure 134/55, pulse 68, temperature afebrile. LUNGS: Clear to auscultation. HEART: Regular rate and rhythm. ABDOMEN: Soft, nontender, nondistended. EXTREMITIES: No edema. NEUROLOGIC: She is currently intubated and sedated. PERTINENT LABORATORY DATA: Hemoglobin 11, white blood cell count 7.7, platelet count of 125. IMPRESSION: 1. Respiratory failure. 2. Abnormal stress study. 3. Ischemic colitis. RECOMMENDATIONS: At this point, Ms. Pennington's status is somewhat stable. She is currently on norepin ephrine. We will try to wean down her norepinephrine. From a CV standpoint, she appears stable. We will treat conservatively. She does have abnormality in recent stress study suggesting ischemia to the anterior wall. We will follow closely. I did discuss with the daughter.
--- NOTE | 2017-04-19 10:52 | PRG ---
DATE OF SERVICE: 04/19/2017 The patient was seen and examined, still on life support, but awake and interactive. PHYSICAL EXAMINATION: VITAL SIGNS: Blood pressure 134/55, O2 sat 100%, respiratory rate 19, heart rate of 68. HEENT: Remarkable for endotracheal tube in place. CARDIOVASCULAR: First and second heart sounds were heard. RESPIRATORY: Reveals vented sounds. ABDOMEN: Digestive system revealed a benign abdomen. EXTREMITIES: Showed no significant edema. LABORATORY INVESTIGATIONS: Showed a creatinine stable at 1.58 is much improved, potassium 3.2, bicar bonate of 22. IMPRESSION: 1. Acute on chronic kidney disease which seems to be stable and slightly much improved. 2. Metabolic acidosis, mild. 3. Hypokalemia. 4. Gastrointestinal bleed. PLAN: 1. Continue current renal supportive measures. 2. Replete potassium. 3. Patient to undergo colonoscopy today. Further management will be dependent on the clinical course.
[2017-04-19] MEDS: Lorazepam 2 MG/ML VIAL SLOW IVP PRN (14:33)
[2017-04-19] MEDS ORDERED: Midazolam HCl 2 mg/2 ml Vial ONE (16:37)
--- NOTE | 2017-04-19 16:54 | PRG ---
DATE OF SERVICE: 04/19/2017 SUBJECTIVE: Ms. Pennington is still on the ventilator. Her blood pressures are looking better. Her Levophed has been weaned down to 12.5 from 25 yesterday morning. Her labs all look good. Her urine output has improved. She denies any abdominal pain or nausea or shortness of breath. She still indicates that she has some abdominal tenderness which is about the same. OBJECTIVE: Her abdomen is soft and nondistended. She does not exhibit any rigidity, rebound or guarding. Bowel sounds are not definitely heard LABORATORY DATA: White count, lactate and PTT are normal. INR is slightly elevated, though she has not had much bleeding with her bowel movement on the GoLYTELY prep. ASSESSMENT AND PLAN: Likely ischemic bowel with improved clinical condition, still weaning Levophed. She is going to undergo endoscopy today by Gastroenterology and we will await the results of this. Hopefully, if this is encouraging, we will be able to extubate her shortly. JUANJO
[2017-04-19] MEDS ORDERED: Norepinephrine 8 MG in Sodium Chloride 0.9% 250 ML 250 ML IVPB PRN (19:37)
--- NOTE | 2017-04-19 21:36 | OP ---
DATE OF PROCEDURE: 04/19/2017. PROCEDURE: Esophagogastroduodenoscopy and flexible sigmoidoscopy with biopsy. PREOPERATIVE DIAGNOSIS: Sepsis and suspected ischemic bowel and gastrointestinal bleed. OPERATIVE NOTE: Informed consent was obtained from the patient. She was sedated with total intraven ous anesthesia. The bite block was placed and the endoscope was advanced easily to the second portio n of the duodenum and retroflexion was performed in the stomach. The esophagus was normal. The GE j unction was normal. The stomach was normal including retroflexed views. The pylorus and first and s econd portions of the duodenum were normal. The air was suctioned from the stomach. The patient was turned around. Rectal exam was performed and was normal. The colonoscope was advanced to the dista l descending colon. The rectal mucosa was normal. There was ulceration with white exudate throughou t the distal sigmoid. There was severe ulceration and purple discoloration of the descending colon. Biopsies were obtained from the distal descending and sigmoid colon. Colonic aspirate was obtained to evaluate for C. diff. IMPRESSION: 1. Normal esophagogastroduodenoscopy. 2. Severe ischemic colitis of the descending and sigmoid colon. The descending colon has very sever e ischemic changes with circumferential ulceration and purple mucosa. 3. There were white exudates in the sigmoid, again likely from ischemic colitis. Aspirates were obt ained from the colon to rule out Clostridium difficile. RECOMMENDATIONS: 1. Continue supportive care. Her pulse and blood pressure improved. Her need for Levophed is great ly improved. She is awake and responsive on the ventilator. Her abdomen is tender but chest no guar ding. She appears to be clinically improving, so hopefully this is not a transmural ischemia and she does not appear to have had complications of perforation at this point. 2. Await histopathology.
[2017-04-20] MEDS: metroNIDAZOLE 500 MG in Premix Bag 1 BAG IVPB SCH ×4 (02:21→21:30)
[2017-04-20 04:59] LABS: #Eosinphils 0.1 thou/uL (0.0-0.7); #Lymphocytes 0.7 thou/uL (1.20-3.40); #Monocytes 0.4 thou/uL (0.11-0.59); %Basophils 0.1 % (0.0-1.0); %Eosinophils 1.4 % (0.0-10.0); %Lymphocytes 9.6 % (21.0-51.0); %Monocytes 5.6 % (0.0-10.0); %Neutrophils 83.3 % (42.0-75.0); Mean Corpuscular HGB CONC 33.3 g/dL (32.0-36.0); Mean Corpuscular Hemoglobin 29.1 pg (27.0-31.0); Mean Corpuscular Volume 87.6 fl (81.0-99.0); Mean Platelet Volume 8.8 fL (7.4-10.4); Platelet Count 101 thou/uL (130-400); Red Blood Cell (RBC) Count 3.44 mill/uL (4.20-5.40); White Blood Cell (WBC) Count 7.2 thou/uL (4.8-10.8)
[2017-04-20 05:10] LABS: Anion Gap 7 mmol/L (10-20); BUN (Urea Nitrogen) 29 mg/dL (9.8-20.1); Calc. Creatinine Clearance 59 mL/min (70-130); Carbon Dioxide 28 mmol/L (23-31); Chloride 112 mmol/L (98-107); Estimated GFR-MDRD 45; Glucose 106 mg/dL (83-110); Sodium 144 mmol/L (136-145)
[2017-04-20 05:20] LABS: Potassium 2.9 mmol/L (3.5-5.1)
[2017-04-20] MEDS: Sodium Bicarbonate 150 MEQ in Dextrose 5% in Water 1,000 ML IV SCH ×2 (05:58)
--- NOTE | 2017-04-20 07:21 | PDOC.PULCC ---
CCU Progress Note: Subj/Obj - Subjective Date: 04/20/17 Time: 07:20 Narrative: awake and follows - Objective Allergies/Adverse Reactions: Allergies Allergy/AdvReac Type Severity Reaction Status Date / Time oxycodone HCl Allergy Severe DIFFICULTY Verified 04/17/17 14:32 [From OxyContin] BREATHING Penicillins Allergy Intermediate Rash Verified 04/17/17 14:32 Sulfa (Sulfonamide Allergy Intermediate Rash Verified 04/17/17 14:32 Antibiotics) Medications: Current Medications Albuterol/Ipratropium (Duoneb) 3 ml NEB Q4H PRN PRN Reason: Wheezing Dextrose/Water (Dextrose 50%) 25 gm SLOW IVP PRN PRN PRN Reason: Hypoglycemia Glucagon (Glucagon) 1 mg IM PRN PRN PRN Reason: Hypoglycemia Dextrose/Water (D5w) 1,000 mls @ 0 mls/hr IV .Q0M PRN; As Directed PRN Reason: Hypoglycemia Pantoprazole Sodium 80 mg/ (Sodium Chloride) 100 mls @ 10 mls/hr IVP INF [facility] Last Admin: 04/19/17 20:05 Dose: 100 mls Levofloxacin 500 mg/ Device 100 mls @ 100 mls/hr IVPB Q2DAYS@1800 [facility] Last Admin: 04/19/17 19:32 Dose: 100 mls Metronidazole 500 mg/ Device 100 mls @ 100 mls/hr IVPB 0200,0800,1400,2000 [facility] Last Admin: 04/20/17 02:21 Dose: 100 mls Fentanyl (Fentanyl Cadd) 250 mls @ 0 mls/hr IVPB INF [facility]; Titrate PRN Reason: Protocol Stop: 05/17/17 16:52 Last Admin: 04/17/17 18:30 Dose: 250 mls Fentanyl Citrate 2,000 mcg/ (Sodium Chloride) 100 mls @ 0 mls/hr IV INF [facility]; Per Protocol PRN Reason: Protocol Stop: 05/17/17 16:52 Last Admin: 04/19/17 16:23 Dose: 100 mls Fentanyl Citrate (Fentanyl Bolus) 250 mls @ 0 mls/hr IVPB PRN PRN; As Directed PRN Reason: Breakthrough pain Stop: 05/17/17 16:52 Sodium Bicarbonate 150 meq/ (Dextrose/Water) 1,150 mls @ 125 mls/hr IV .Q9H12M [facility] Last Admin: 04/20/17 05:58 Dose: 1,150 mls Norepinephrine Bitartrate 8 mg (/ Sodium Chloride) 258 mls @ 0 mls/hr IVPB INF PRN; Protocol; Titrate PRN Reason: Blood Pressure Last Admin: 04/19/17 20:05 Dose: 258 mls Potassium Chloride 40 meq/ (Sodium Chloride) 270 mls @ 67.5 mls/hr IVPB Q4HR [facility] Stop: 04/20/17 16:59 Insulin Human Regular (Humulin R) 0 units SC .MILD SLIDING PRN; Protocol PRN Reason: MILD SLIDING SCALE Lorazepam (Ativan) 2 mg SLOW IVP Q2H PRN PRN Reason: Anxiety to achieve Schulz 2-3 Stop: 05/17/17 16:52 Last Admin: 04/19/17 14:33 Dose: 2 mg Morphine Sulfate (Morphine) 2 mg SLOW IVP Q2H PRN PRN Reason: Breakthrough pain Stop: 05/17/17 16:52 Discontinue Previous Narcotic Pain Medications And Benzodiazepines 1 each FS .ONE [facility] Stop: 05/17/17 16:52 Ondansetron HCl (Zofran) 4 mg IVP Q6H PRN PRN Reason: Nausea Propofol (Diprivan) 1,000 mg IV INF PRN; Protocol PRN Reason: TO ACHIEVE SCHULZ SCORE 2-3 Stop: 05/17/17 16:52 Sodium Chloride (Flush - Normal Saline) 10 ml IVF PRN PRN PRN Reason: Saline Flush Last Admin: 04/18/17 08:13 Dose: 10 ml Vital Signs and I&O: Vital Signs Temp 99.5 F 04/20/17 04:00 Pulse 58 L 04/20/17 07:01 Resp 18 04/20/17 06:00 BP 108/47 L 04/20/17 07:01 Pulse Ox 100 04/19/17 20:00 Intake & Output 04/19/17 04/20/17 04/20/17 18:59 06:59 18:59 Intake Total 1850 1565.6 Output Total 830 455 Balance 1020 1110.6 Weight 229 lb 4.492 oz 250 lb 3.594 oz Intake: Intake, IV Amount 1850 1565.6 Norepinephrine 8 MG/0.9% 129 88.4 NS 250 ml @ Titrate IVPB INF [facility] Rx#:[id number] Pantoprazole 80 mg 143 Admixture Fee 1 each In Sodium Chloride 0.9% 100 ml @ 10 mls/hr IVP INF [facility] Rx#:[id number] Pantoprazole 80 mg In 94.2 Sodium Chloride 0.9% 100 ml @ 10 mls/hr IVP INF [facility] Rx#:[id number] Sodium Bicarbonate 150 1578 1183 meq In Dextrose 5% in Water 1,000 ml @ 125 mls/ hr IV .Q9H12M [facility] Rx#: [id number] metroNIDAZOLE 500 mg In 200 Premix Bag 1 bag @ 100 mls/hr IVPB 0200,0800, 1400,2000 [facility] Rx#: [id number] Output: Output, Harris 830 455 Other: Voiding Method Indwelling Catheter Indwelling Catheter Vent Setting: Positive End Expiratory 5 Pressure % Fraction of Inspired Oxygen 40 (FIO2) SIMV 18/500/40% Spontaneous Breathing Test: done (R fem HD catheter, L Rad Art line) CCU Progress Note: Exam - Physical Exam Constitutional: NAD HEENT: PERRLA Neck: no nodes, no JVD Cardiovascular: RRR Respiratory: clear to auscultation bilaterally Gastrointestinal: soft, no distention Neurological: non-focal Psychiatric: normal affect Skin: no rash CCU Progress Note: Data - Labs Result Diagrams: 04/20/17 04:10 04/20/17 04:10 Lab results: Laboratory Results 04/18/17 04/18/17 04/18/17 09:11 09:11 15:54 WBC RBC Hgb Hct MCV MCH MCHC RDW Plt Count MPV Neutrophils % Lymphocytes % Monocytes % Eosinophils % Basophils % Neutrophils # Lymphocytes # Monocytes # Eosinophils # Basophils # PT INR APTT Fibrinogen 269 Specimen Type Puncture Site Bicarbonate Actual ABG pH ABG pCO2 ABG pO2 ABG O2 Sat Calc/Hien ABG O2 Content ABG Base Excess ABG Hematocrit ABG Hemoglobin ABG Oxyhemoglobin ABG Carboxyhemoglobin ABG Methemoglobin A-a O2 Gradient Ionized Calcium Mode of Support Mechanical Rate Inspired O2 Tidal Volume Pressure Support PEEP or CPAP Sodium Potassium Chloride Carbon Dioxide Anion Gap BUN Creatinine Estimated GFR (MDRD) Glucose POC Glucose 103 Lactic Acid 2.2 Calcium 04/18/17 04/19/17 04/19/17 23:43 03:45 03:45 WBC RBC Hgb Hct MCV MCH MCHC RDW Plt Count MPV Neutrophils % Lymphocytes % Monocytes % Eosinophils % Basophils % Neutrophils # Lymphocytes # Monocytes # Eosinophils # Basophils # PT 16.6 H INR 1.3 APTT 29.4 Fibrinogen Specimen Type Puncture Site Bicarbonate Actual ABG pH ABG pCO2 ABG pO2 ABG O2 Sat Calc/Hien ABG O2 Content ABG Base Excess ABG Hematocrit ABG Hemoglobin ABG Oxyhemoglobin ABG Carboxyhemoglobin ABG Methemoglobin A-a O2 Gradient Ionized Calcium Mode of Support Mechanical Rate Inspired O2 Tidal Volume Pressure Support PEEP or CPAP Sodium 145 Potassium 3.2 L Chloride 115 H Carbon Dioxide 22 L Anion Gap 11 BUN 36 H Creatinine 1.58 H Estimated GFR (MDRD) 31 Glucose 160 H POC Glucose 141 H Lactic Acid Calcium 8.2 04/19/17 04/19/17 04/19/17 03:45 03:45 06:49 WBC 7.7 RBC 3.80 L Hgb 11.0 L Hct 33.1 L MCV 87.1 MCH 28.9 MCHC 33.1 RDW 13.2 Plt Count 125 L MPV 8.8 Neutrophils % 86.2 H Lymphocytes % 9.2 L Monocytes % 4.0 Eosinophils % 0.5 Basophils % 0.1 Neutrophils # 6.7 H Lymphocytes # 0.7 L Monocytes # 0.3 Eosinophils # 0.0 Basophils # 0.0 PT INR APTT Fibrinogen Specimen Type ARTERIAL Puncture Site LINE Bicarbonate Actual 21.4 L ABG pH 7.51 H ABG pCO2 27.5 L ABG pO2 83.2 ABG O2 Sat Calc/Hien 97.3 ABG O2 Content 14.7 L ABG Base Excess -0.7 ABG Hematocrit 30.5 L ABG Hemoglobin 10.8 L ABG Oxyhemoglobin 95.9 ABG Carboxyhemoglobin 0.8 ABG Methemoglobin 0.7 A-a O2 Gradient 167.625 H Ionized Calcium 1.2 Mode of Support SIMV Mechanical Rate 24 Inspired O2 40 Tidal Volume 500 Pressure Support 10 PEEP or CPAP 5.0 Sodium 145 Potassium 2.8 L Chloride 107 H Carbon Dioxide Anion Gap BUN Creatinine Estimated GFR (MDRD) Glucose POC Glucose 143 H Lactic Acid Calcium 04/19/17 04/19/17 04/20/17 11:07 22:58 04:10 WBC RBC Hgb Hct MCV MCH MCHC RDW Plt Count MPV Neutrophils % Lymphocytes % Monocytes % Eosinophils % Basophils % Neutrophils # Lymphocytes # Monocytes # Eosinophils # Basophils # PT INR APTT Fibrinogen Specimen Type Puncture Site Bicarbonate Actual ABG pH ABG pCO2 ABG pO2 ABG O2 Sat Calc/Hien ABG O2 Content ABG Base Excess ABG Hematocrit ABG Hemoglobin ABG Oxyhemoglobin ABG Carboxyhemoglobin ABG Methemoglobin A-a O2 Gradient Ionized Calcium Mode of Support Mechanical Rate Inspired O2 Tidal Volume Pressure Support PEEP or CPAP Sodium 144 Potassium 2.9 L* Chloride 112 H Carbon Dioxide 28 Anion Gap 7 L BUN 29 H Creatinine 1.16 H Estimated GFR (MDRD) 45 Glucose 106 POC Glucose 97 96 Lactic Acid Calcium 8.0 04/20/17 04/20/17 04:10 04:14 WBC 7.2 RBC 3.44 L Hgb 10.0 L Hct 30.1 L MCV 87.6 MCH 29.1 MCHC 33.3 RDW 13.0 Plt Count 101 L MPV 8.8 Neutrophils % 83.3 H Lymphocytes % 9.6 L Monocytes % 5.6 Eosinophils % 1.4 Basophils % 0.1 Neutrophils # 6.0 Lymphocytes # 0.7 L Monocytes # 0.4 Eosinophils # 0.1 Basophils # 0.0 PT INR APTT Fibrinogen Specimen Type Puncture Site Bicarbonate Actual ABG pH ABG pCO2 ABG pO2 ABG O2 Sat Calc/Hien ABG O2 Content ABG Base Excess ABG Hematocrit ABG Hemoglobin ABG Oxyhemoglobin ABG Carboxyhemoglobin ABG Methemoglobin A-a O2 Gradient Ionized Calcium Mode of Support Mechanical Rate Inspired O2 Tidal Volume Pressure Support PEEP or CPAP Sodium Potassium Chloride Carbon Dioxide Anion Gap BUN Creatinine Estimated GFR (MDRD) Glucose POC Glucose 101 Lactic Acid Calcium - ABG Interpretation ABG Results: ABG pH 7.51 (7.35-7.45) H 04/19/17 06:49 ABG pCO2 27.5 mmHg (35.0-45.0) L 04/19/17 06:49 ABG O2 Sat Calc/Hien 97.3 % (94.0-100.0) 04/19/17 06:49 ABG Base Excess -0.7 mEq/L (0 (+/-) 2.5) 04/19/17 06:49 - Radiology Interpretation Chest x-ray Status: image reviewed by me (Clear) CCU Progress Note: A/P - Problems (1) Ischemic colitis Current Visit: Yes Status: Acute Code(s): K55.9 - VASCULAR DISORDER OF INTESTINE, UNSPECIFIED (2) Acute respiratory failure with hypoxemia Current Visit: Yes Status: Acute Code(s): J96.01 - ACUTE RESPIRATORY FAILURE WITH HYPOXIA (3) Septic shock Current Visit: Yes Status: Acute Code(s): A41.9 - SEPSIS, UNSPECIFIED ORGANISM; R65.21 - SEVERE SEPSIS WITH SEPTIC SHOCK - Time Spent with Patient Time (minutes): 30 - Plan Plan: SBT, extubate if tolerates DC A-line Cont IV ABX Replace K
[2017-04-20 07:30] LABS: Actual Bicarbonate (HCO3a) 26.4 mEq/L (22-26); Base Excess (BEa) 2.7 mEq/L (0 (+/-) 2.5); CO2 Tension 37.2 mmHg (35.0-45.0); Hemoglobin (Hb) 10.5 g/dL (12.0-16.0); O2 Tension (PaO2) 108.1 mmHg (80.0-100.0); pH, Arterial 7.47 (7.35-7.45)
[2017-04-20 07:31] LABS: Analyzer IN Cardio ER; Calcium, Ionized 1.2 mmol/L (1.12-1.30); Puncture Site L.R.
[2017-04-20] MEDS: Potassium Chloride 40 MEQ in Sodium Chloride 0.9% 250 ML 250 ML IVPB SCH ×2 (08:02→15:36)
[2017-04-20] MEDS: Pantoprazole 80 MG in Sodium Chloride 0.9% 100 ML IVP SCH ×2 (09:00→09:32)
--- NOTE | 2017-04-20 09:06 | RAD ---
PORTABLE CHEST 1 VIEW: DATE: 04/20/17. TIME: 4:39 a.m. HISTORY: Respiratory failure. FINDINGS: Comparison is made with the exam of the previous day. Endotracheal and nasogastric tubes remain in p lace. Bilateral pleural effusions are noted which appear improved likely due to change in position o f the patient (upright on the current exam and semierect on the previous study). Heart size is enlar ged. No pneumothoraces or marycruz pulmonary edema are seen. POS: ANASTACIA
--- NOTE | 2017-04-20 09:09 | PRG ---
DATE OF SERVICE: 04/20/2017 SUBJECTIVE: Ms. Pennington currently continues to be intubated. She is off all pressors. No current co mplaints. She denies chest pain, pressure, or other associated symptoms. OBJECTIVE: VITAL SIGNS: Blood pressure 108/47, pulse 59, respirations 20. LUNGS: Clear to auscultation. CARDIAC: Regular rate and rhythm. ABDOMEN: Soft, nontender, nondistended. EXTREMITIES: No edema. PERTINENT LABORATORY DATA: Hemoglobin 10, platelet count 101, potassium 2.9, creatinine 1.16. IMPRESSION: 1. Ischemic colitis. 2. Coronary artery disease. 3. Respiratory failure. RECOMMENDATIONS: Ms. Pennington slowly is improving. She is off norepinephrine. Her rate appears stabl e. At this point, continue antibiotic therapy and continue vent support. No other recommendations.
--- NOTE | 2017-04-20 16:31 | PRG ---
DATE OF SERVICE: 04/20/2017 GI INPATIENT DAILY PROGRESS NOTE SUBJECTIVE: Ms. Pennington was able to be extubated. She denies any shortness of breath. She is feelin g quite weak. She also denies any abdominal pain or nausea. She has had some bowel movements residu al prep and this is cleared without any bleeding. She was found to have severe left-sided ischemic a ppearing colitis on colonoscopy yesterday. PHYSICAL EXAMINATION: VITAL SIGNS: Temperature 98.4, pulse 77, blood pressure 116/60, 100% oxygen saturation on 2 liters n marisol cannula. GENERAL: Frail, lying in bed comfortably in no acute distress, awake and alert. HEART: Regular rate and rhythm. LUNGS: Clear to auscultation bilaterally. ABDOMEN: Bowel sounds present, soft and nontender to palpation. EXTREMITIES: No peripheral edema. LABORATORY DATA: BUN improved to 29, creatinine improved to 1.16, sodium 144, potassium 2.9, INR 1.3 . WBC 7.2, hemoglobin 10.0, platelets 101. ASSESSMENT AND PLAN: 1. Severe ischemic colitis of the left colon, visualized on colonoscopy yesterday. 2. Coagulopathy on presentation, resolved. 3. Acute kidney injury, improving. I had a long discussion with the patient and family members regrosita rding this presentation with ischemic colitis. This is in the characteristic watershed distribution of the left colon and had a characteristic endoscopic appearance. Her presentation was a bit atypica l in that it was quite severe with such a significant coagulopathy associated, but there does not chloe ear to be any transmural bowel injury and as such long-term prognosis should be very good. Would exp ect complete resolution in the coming days to weeks. Agree with advancing diet to clear liquids toda y, and can advance diet further as tolerated if she is doing well tomorrow. Recurrence of ischemic c olitis is possible in the future. Need to prevent or try to avoid further hypotensive episodes.
--- NOTE | 2017-04-20 19:02 | PRG ---
DATE OF SERVICE: 04/20/2017 SUBJECTIVE: The patient was seen and examined today and still on life support, but alert and interac tive, noted with the following vital signs. PHYSICAL EXAMINATION: VITAL SIGNS: Afebrile with temperature 97, blood pressure 136/70, pulse of 86, O2 sat on 99%. HEENT: Examination unremarkable. Endotracheal tube in place. CARDIOVASCULAR: First and second heart sounds were heard. RESPIRATORY: Reveals vented sounds. DIGESTIVE: Reveals an obese abdomen. EXTREMITIES: No significant peripheral edema. LABORATORY INVESTIGATIONS: Significant for potassium of 2.9, BUN of 29, creatinine 1.16. IMPRESSION: 1. Acute on chronic kidney disease, much improved. 2. Hypokalemia. 3. Gastrointestinal bleed. PLAN: 1. Discontinue bicarb based infusion and this is driving potassium into the cells. 2. Continue renal supportive measures. 3. Further management to be dependent on the clinical course.
[2017-04-20] MEDS: Ondansetron HCl/PF 4 MG/2 ML Vial IVP PRN (21:30)
[2017-04-21] MEDS: metroNIDAZOLE 500 MG in Premix Bag 1 BAG IVPB SCH ×4 (01:56→21:06)
--- NOTE | 2017-04-21 02:46 | PRG ---
DATE OF SERVICE: 04/20/2017 SUBJECTIVE: Ms. Pennington is feeling okay today. She was extubated earlier this morning. She had the endoscopies yesterday by Dr. Da Silva. This showed severe ischemic colitis of the sigmoid and descending colon as anticipated. No definite evidence of full-thickness necrosis. The patient states that she has no abdominal pain. She is slightly nauseated, but otherwise has no complaints. Her family reports that she has been a little bit confused today and the patient also states that she feels slightly clouded mentally. OBJECTIVE: VITAL SIGNS: Stable, afebrile. Blood pressure normal to slightly elevated. She is off her Levophed. ABDOMEN: Soft and nontender to palpation. She does not exhibit any rigidity or abdominal bloating. White count is normal, hematocrit is down slightly to 30, platelets 101. Potassium is low at 3.9, but this was replaced. BUN and creatinine 29 and 1.16 , which continues to slowly improve. Her urine output has been good. ASSESSMENT: Clinically improving following an episode of ischemic colitis. No evidence of full-thickness necrosis. We will continue watchful waiting. I have ordered some clear liquids as tolerated. Since the patient is having a little nausea, I advised her to take it slow, and I expect that she will have some degree of ileus. SHYANND
[2017-04-21 05:10] LABS: #Eosinphils 0.1 thou/uL (0.0-0.7); #Lymphocytes 0.6 thou/uL (1.20-3.40); #Monocytes 0.6 thou/uL (0.11-0.59); #Neutrophils 5.3 thou/uL (1.40-6.50); %Basophils 0.4 % (0.0-1.0); %Eosinophils 1.9 % (0.0-10.0); %Lymphocytes 9.1 % (21.0-51.0); %Monocytes 8.9 % (0.0-10.0); %Neutrophils 79.7 % (42.0-75.0); Hemoglobin 9.8 g/dL (12.0-16.0); Mean Corpuscular HGB CONC 32.6 g/dL (32.0-36.0); Mean Corpuscular Hemoglobin 29.1 pg (27.0-31.0); Mean Corpuscular Volume 89.4 fl (81.0-99.0); Mean Platelet Volume 8.3 fL (7.4-10.4); Platelet Count 122 thou/uL (130-400); RBC Distribution Width 13.1 % (11.5-14.5); Red Blood Cell (RBC) Count 3.37 mill/uL (4.20-5.40); White Blood Cell (WBC) Count 6.6 thou/uL (4.8-10.8)
[2017-04-21 05:25] LABS: Anion Gap 10 mmol/L (10-20); BUN (Urea Nitrogen) 32 mg/dL (9.8-20.1); Calc. Creatinine Clearance 78 mL/min (70-130); Calcium 8.1 mg/dL (7.8-10.44); Carbon Dioxide 28 mmol/L (23-31); Chloride 111 mmol/L (98-107); Estimated GFR-MDRD 55; Glucose 79 mg/dL (83-110); Potassium 3.5 mmol/L (3.5-5.1); Sodium 145 mmol/L (136-145)
--- NOTE | 2017-04-21 07:30 | PDOC.PULPN ---
Progress Note: Subj/Obj - Subjective Date: 04/21/17 Time: 07:28 Narrative: weak, c/o bloated abdomen - ROS All systems: reviewed and no additional remarkable complaints except as stated Constitutional: weakness Cardiovascular: edema Respiratory: productive cough - Objective Allergies/Adverse Reactions: Allergies Allergy/AdvReac Type Severity Reaction Status Date / Time oxycodone HCl Allergy Severe DIFFICULTY Verified 04/17/17 14:32 [From OxyContin] BREATHING Penicillins Allergy Intermediate Rash Verified 04/17/17 14:32 Sulfa (Sulfonamide Allergy Intermediate Rash Verified 04/17/17 14:32 Antibiotics) Medications: Current Medications Albuterol/Ipratropium (Duoneb) 3 ml NEB Q4H PRN PRN Reason: Wheezing Last Admin: 04/20/17 23:58 Dose: 3 ml Dextrose/Water (Dextrose 50%) 25 gm SLOW IVP PRN PRN PRN Reason: Hypoglycemia Glucagon (Glucagon) 1 mg IM PRN PRN PRN Reason: Hypoglycemia Dextrose/Water (D5w) 1,000 mls @ 0 mls/hr IV .Q0M PRN; As Directed PRN Reason: Hypoglycemia Levofloxacin 500 mg/ Device 100 mls @ 100 mls/hr IVPB Q2DAYS@1800 [facility] Last Admin: 04/19/17 19:32 Dose: 100 mls Metronidazole 500 mg/ Device 100 mls @ 100 mls/hr IVPB 0200,0800,1400,2000 [facility] Last Admin: 04/21/17 01:56 Dose: 100 mls Fentanyl (Fentanyl Cadd) 250 mls @ 0 mls/hr IVPB INF [facility]; Titrate PRN Reason: Protocol Stop: 05/17/17 16:52 Last Admin: 04/17/17 18:30 Dose: 250 mls Fentanyl Citrate 2,000 mcg/ (Sodium Chloride) 100 mls @ 0 mls/hr IV INF [facility]; Per Protocol PRN Reason: Protocol Stop: 05/17/17 16:52 Last Admin: 04/19/17 16:23 Dose: 100 mls Fentanyl Citrate (Fentanyl Bolus) 250 mls @ 0 mls/hr IVPB PRN PRN; As Directed PRN Reason: Breakthrough pain Stop: 05/17/17 16:52 Norepinephrine Bitartrate 8 mg (/ Sodium Chloride) 258 mls @ 0 mls/hr IVPB INF PRN; Protocol; Titrate PRN Reason: Blood Pressure Last Admin: 04/19/17 20:05 Dose: 258 mls Insulin Human Regular (Humulin R) 0 units SC .MILD SLIDING PRN; Protocol PRN Reason: MILD SLIDING SCALE Lorazepam (Ativan) 2 mg SLOW IVP Q2H PRN PRN Reason: Anxiety to achieve Schulz 2-3 Stop: 05/17/17 16:52 Last Admin: 04/19/17 14:33 Dose: 2 mg Morphine Sulfate (Morphine) 2 mg SLOW IVP Q2H PRN PRN Reason: Breakthrough pain Stop: 05/17/17 16:52 Discontinue Previous Narcotic Pain Medications And Benzodiazepines 1 each FS .ONE [facility] Stop: 05/17/17 16:52 Ondansetron HCl (Zofran) 4 mg IVP Q6H PRN PRN Reason: Nausea Last Admin: 04/20/17 21:30 Dose: 4 mg Pantoprazole Sodium (Protonix) 40 mg IVP DAILY [facility] Propofol (Diprivan) 1,000 mg IV INF PRN; Protocol PRN Reason: TO ACHIEVE SCHULZ SCORE 2-3 Stop: 05/17/17 16:52 Sodium Chloride (Flush - Normal Saline) 10 ml IVF PRN PRN PRN Reason: Saline Flush Last Admin: 04/18/17 08:13 Dose: 10 ml MAR Reviewed: Yes Vital Signs: Vital Signs Temp 98.1 F 04/21/17 04:00 Pulse 94 04/20/17 23:58 Resp 17 04/20/17 23:58 BP 116/60 04/20/17 11:20 Pulse Ox 100 04/20/17 23:58 Intake & Output 04/20/17 04/21/17 04/21/17 18:59 06:59 18:59 Intake Total 533 855 0 Output Total 465 420 45 Balance 68 435 -45 Intake: Intake, IV Amount 458 315 Pantoprazole 80 mg In 107 Sodium Chloride 0.9% 100 ml @ 10 mls/hr IVP INF [facility] Rx#:[id number] Potassium Chloride 40 meq 351 115 In Sodium Chloride 0.9% 250 ML 250 ml @ 67.5 mls/ hr IVPB Q4HR [facility] Rx#: [id number] metroNIDAZOLE 500 mg In 200 Premix Bag 1 bag @ 100 mls/hr IVPB 0200,0800, 1400,2000 [facility] Rx#: [id number] Oral 75 540 0 Output: Output, Chopra 465 420 45 Other: Voiding Method Indwelling Catheter Indwelling Catheter # Bowel Movements 1 1 Progress Note: Exam - Physical Exam Constitutional: NAD HEENT: PERRLA, sclera anicteric Neck: no nodes, no JVD Cardiovascular: RRR, no significant murmur Respiratory: clear to auscultation bilaterally Gastrointestinal: soft, non-tender, positive bowel sounds Musculoskeletal: edema present Neurological: non-focal, moves all 4 limbs Lymphatic: no nodes Psychiatric: normal affect, A&O x 3 Skin: no rash Progress Note: Data - Labs Result Diagrams: 04/21/17 04:50 04/21/17 04:50 Lab results: Laboratory Results 04/19/17 04/19/17 04/20/17 11:07 22:58 04:10 WBC RBC Hgb Hct MCV MCH MCHC RDW Plt Count MPV Neutrophils % Lymphocytes % Monocytes % Eosinophils % Basophils % Neutrophils # Lymphocytes # Monocytes # Eosinophils # Basophils # Specimen Type Puncture Site Bicarbonate Actual ABG pH ABG pCO2 ABG pO2 ABG O2 Sat Calc/Hien ABG O2 Content ABG Base Excess ABG Hemoglobin ABG Oxyhemoglobin ABG Carboxyhemoglobin ABG Methemoglobin ABG Deoxyhemoglobin Luan Test A-a O2 Gradient Ionized Calcium Mode of Support Mechanical Rate Inspired O2 Tidal Volume Pressure Support PEEP or CPAP Sodium 144 Potassium 2.9 L* Chloride 112 H Carbon Dioxide 28 Anion Gap 7 L BUN 29 H Creatinine 1.16 H Estimated GFR (MDRD) 45 Glucose 106 POC Glucose 97 96 Calcium 8.0 04/20/17 04/20/17 04/20/17 04:10 04:14 07:00 WBC 7.2 RBC 3.44 L Hgb 10.0 L Hct 30.1 L MCV 87.6 MCH 29.1 MCHC 33.3 RDW 13.0 Plt Count 101 L MPV 8.8 Neutrophils % 83.3 H Lymphocytes % 9.6 L Monocytes % 5.6 Eosinophils % 1.4 Basophils % 0.1 Neutrophils # 6.0 Lymphocytes # 0.7 L Monocytes # 0.4 Eosinophils # 0.1 Basophils # 0.0 Specimen Type ARTERIAL Puncture Site L.R. Bicarbonate Actual 26.4 H ABG pH 7.47 H ABG pCO2 37.2 ABG pO2 108.1 H ABG O2 Sat Calc/Hien 98.2 ABG O2 Content 14.4 L ABG Base Excess 2.7 H ABG Hemoglobin 10.5 L ABG Oxyhemoglobin 96.6 ABG Carboxyhemoglobin 1.1 ABG Methemoglobin 0.6 ABG Deoxyhemoglobin 1.8 Luan Test POSITIVE A-a O2 Gradient 132.600 H Ionized Calcium 1.2 Mode of Support PSIMV Mechanical Rate 18 Inspired O2 40 Tidal Volume 500 Pressure Support 10 PEEP or CPAP 5.0 Sodium 146 Potassium 2.7 L Chloride 106 Carbon Dioxide Anion Gap BUN Creatinine Estimated GFR (MDRD) Glucose POC Glucose 101 Calcium 04/20/17 04/20/17 04/21/17 16:31 21:43 04:50 WBC RBC Hgb Hct MCV MCH MCHC RDW Plt Count MPV Neutrophils % Lymphocytes % Monocytes % Eosinophils % Basophils % Neutrophils # Lymphocytes # Monocytes # Eosinophils # Basophils # Specimen Type Puncture Site Bicarbonate Actual ABG pH ABG pCO2 ABG pO2 ABG O2 Sat Calc/Hien ABG O2 Content ABG Base Excess ABG Hemoglobin ABG Oxyhemoglobin ABG Carboxyhemoglobin ABG Methemoglobin ABG Deoxyhemoglobin Luan Test A-a O2 Gradient Ionized Calcium Mode of Support Mechanical Rate Inspired O2 Tidal Volume Pressure Support PEEP or CPAP Sodium 145 Potassium 3.5 Chloride 111 H Carbon Dioxide 28 Anion Gap 10 BUN 32 H Creatinine 0.96 Estimated GFR (MDRD) 55 Glucose 79 L POC Glucose 91 79 Calcium 8.1 04/21/17 04/21/17 04:50 04:55 WBC 6.6 RBC 3.37 L Hgb 9.8 L Hct 30.2 L MCV 89.4 MCH 29.1 MCHC 32.6 RDW 13.1 Plt Count 122 L MPV 8.3 Neutrophils % 79.7 H Lymphocytes % 9.1 L Monocytes % 8.9 Eosinophils % 1.9 Basophils % 0.4 Neutrophils # 5.3 Lymphocytes # 0.6 L Monocytes # 0.6 H Eosinophils # 0.1 Basophils # 0.0 Specimen Type Puncture Site Bicarbonate Actual ABG pH ABG pCO2 ABG pO2 ABG O2 Sat Calc/Hien ABG O2 Content ABG Base Excess ABG Hemoglobin ABG Oxyhemoglobin ABG Carboxyhemoglobin ABG Methemoglobin ABG Deoxyhemoglobin Luan Test A-a O2 Gradient Ionized Calcium Mode of Support Mechanical Rate Inspired O2 Tidal Volume Pressure Support PEEP or CPAP Sodium Potassium Chloride Carbon Dioxide Anion Gap BUN Creatinine Estimated GFR (MDRD) Glucose POC Glucose 79 Calcium Progress Note: A/P - Problems (1) Ischemic colitis Current Visit: Yes Status: Acute Code(s): K55.9 - VASCULAR DISORDER OF INTESTINE, UNSPECIFIED (2) Acute respiratory failure with hypoxemia Current Visit: Yes Status: Resolved Code(s): J96.01 - ACUTE RESPIRATORY FAILURE WITH HYPOXIA (3) Septic shock Current Visit: Yes Status: Resolved Code(s): A41.9 - SEPSIS, UNSPECIFIED ORGANISM; R65.21 - SEVERE SEPSIS WITH SEPTIC SHOCK - Plan Plan: Can transfer to telemetry Consult PT DC chopra Cont ABX further disposition per GI and GS
--- NOTE | 2017-04-21 07:58 | RAD ---
SINGLE VIEW OF THE CHEST: Comparison: 04-20-17 History: Respiratory distress/respiratory failure. FINDINGS: Single view of the chest shows an enlarged but stable cardiomediastinal silhouette with atherosclerot ic calcifications in the aorta. The NG tube and endotracheal tube have been removed. There is no evid ence of consolidation, mass, or pleural effusion. IMPRESSION: Stable exam status post extubation. POS: H
[2017-04-21] MEDS: Pantoprazole 40 MG VIAL IVP SCH (09:07)
[2017-04-21] MEDS: Ondansetron HCl/PF 4 MG/2 ML Vial IVP PRN (09:08)
--- NOTE | 2017-04-21 14:26 | PRG ---
DATE OF SERVICE: 04/21/2017 The patient is seen and examined. Extubated, doing very well. Hemodynamically stable. PHYSICAL EXAMINATION: HEENT: Unremarkable. CARDIOVASCULAR: First and second heart sounds were heard. RESPIRATORY: Clear to auscultation. DIGESTIVE: Revealed a benign abdomen. EXTREMITIES: No peripheral edema. SKIN: No new gross rash. LYMPHATICS: No peripheral lymphadenopathy. Renal function improved back to normal. IMPRESSION: 1. Acute kidney injury. This seems to have responded to medical intervention. 2. Gastrointestinal bleed, status post endoscopy. PLAN: 1. Continue renal supportive measures. 2. Further management to be dependent on the clinical course.
[2017-04-21] MEDS: Dextrose 5 %-0.45 % NaCl 1,000 ML IV SCH (14:46)
--- NOTE | 2017-04-21 15:31 | PRG ---
DATE OF SERVICE: 04/21/2017 Ms. Pennington states that she is feeling alright today. She is still a little nauseated. Her mouth is dry. She is not having much abdominal pain. She did have some liquid bowel movements earlier today which were not frankly bloody. She feels bloated and somewhat uncomfortable, but is breathing well. OBJECTIVE: The patient has been afebrile. Her blood pressure has been normal to slightly elevated. Urine output has been okay. She has had fairly minimal oral intake, mostly of ice chips and sips of water. Her abdomen is soft and nondistended. She has mild tenderness to palpation which is nonfocal. Bowel sounds are present. ASSESSMENT: Likely ileus based on recent illness. She appears to be recovering from her ischemic colitis. I discussed her ischemic colitis with her and with her daughter. Since she seems to be recovering at this point, I favor nonoperative management. She is elderly, frail and recently had an abnormal stress test, so elective colectomy is somewhat risky in my opinion. This has to be weighed against the risk of repeat episodes of ischemia, but since she is minimally symptomatic and appears to be recovering at this point, I feel that watchful waiting is the most prudent course. I have discussed her case with other surgeons and they are in agreement; however, if she has worsening abdominal pain or recurrence of bloody diarrhea, this will need to be revisited. Since she has not taken much n.p.o. and complains of dry mouth, I have elected to restart maintenance IV fluids at a low rate. I will continue to follow her along with the medicine team. JUANJO
--- NOTE | 2017-04-21 20:03 | PRG ---
DATE OF SERVICE: 04/21/2017 SUBJECTIVE: Ms. Pennington is feeling quite a bit better today. She does complain of back pain. She is not having any nausea or vomiting. She has been tolerating her diet and even ate some potatoes jeb ier this evening. She does feel a bit bloated, but she has been passing gas and had a couple of smal l volume more watery bowel movements with no melena or hematochezia. She has been afebrile. She is awaiting transfer out of the ICU. OBJECTIVE: VITAL SIGNS: Temperature 98.9, blood pressure 135/68, pulse 88, 98% oxygen saturation on room air. GENERAL: No acute distress. HEART: Regular rate and rhythm. LUNGS: Clear to auscultation bilaterally. ABDOMEN: Mild distention, tympanitic to percussion. Bowel sounds present, soft, some mild tendernes s to palpation in the left abdomen, but no guarding, rebound tenderness. EXTREMITIES: No peripheral edema. LABORATORY STUDIES: WBC 6.6, hemoglobin 9.8, platelets 122. Sodium 145, potassium 3.5, BUN 32, crea tinine 0.96. ASSESSMENT AND PLAN: 1. Severe ischemic colitis of the left colon, clinically improving. 2. Coagulopathy on presentation, resolved. 3. Acute kidney injury, improving. It does not appear that the patient had any transmural infarctio n from this episode of ischemic colitis. She has been clinically improving. Prognosis from a GI per spective should be quite good. No repeat colonoscopy will be needed, assuming the patient continues to do well. I agree with advancing her diet as tolerated.
--- NOTE | 2017-04-21 21:31 | PRG ---
DATE OF SERVICE: 04/21/2017 SUBJECTIVE: Ms. Aquino was extubated yesterday. She is doing well. She appears to be in good spirit s. OBJECTIVE: VITAL SIGNS: Blood pressure 110/60, pulse 83, temperature afebrile. LUNGS: Clear to auscultation. HEART: Regular rate and rhythm. ABDOMEN: Soft, nontender, nondistended. EXTREMITIES: No edema. FURTHER LABORATORY DATA: Hemoglobin 9.8, creatinine 0.96. IMPRESSION: 1. Ischemic colitis. 2. Coronary artery disease. 3. Respiratory failure.. RECOMMENDATIONS: From a CV standpoint appears stable. Blood pressure and heart rate continues to do well. We will add p.o. medications tomorrow.
[2017-04-22] MEDS: metroNIDAZOLE 500 MG in Premix Bag 1 BAG IVPB SCH ×4 (02:59→20:46)
[2017-04-22] MEDS: Dextrose 5 %-0.45 % NaCl 1,000 ML IV SCH ×2 (05:13→20:47)
[2017-04-22 05:53] LABS: Anion Gap 10 mmol/L (10-20); BUN (Urea Nitrogen) 25 mg/dL (9.8-20.1); Calc. Creatinine Clearance 97 mL/min (70-130); Calcium 8.2 mg/dL (7.8-10.44); Carbon Dioxide 27 mmol/L (23-31); Chloride 108 mmol/L (98-107); Estimated GFR-MDRD 70; Glucose 94 mg/dL (83-110); Potassium 3.5 mmol/L (3.5-5.1); Sodium 141 mmol/L (136-145)
[2017-04-22] MEDS: Ondansetron HCl/PF 4 MG/2 ML Vial IVP PRN ×2 (06:24→22:19)
[2017-04-22] MEDS: Pantoprazole 40 MG VIAL IVP SCH (08:58)
--- NOTE | 2017-04-22 09:03 | RAD ---
TWO VIEWS ABDOMEN: Date: 04-22-17 History: Ischemic colitis. FINDINGS: Two decubitus radiographs of the abdomen with the right side up provided. In addition, supine imaging of abdomen provided. Supine imaging demonstrates gaseous distention of the stomach. There is also gaseous distention of luciana wel throughout the abdomen and pelvis, which includes distended gas filled colon and distended gas fi lled small bowel. The decubitus imaging demonstrates no evidence for free intraperitoneal air. IMPRESSION: Gaseous distention of bowel throughout the abdomen/pelvis. No evidence for free intraperitoneal air. Findings may be on the basis of bowel obstruction or ileus. This could be best assessed via follow up CT examination of the abdomen and pelvis. POS: JAMIL
--- NOTE | 2017-04-22 11:20 | PRG ---
DATE OF SERVICE: 04/22/2017 SUBJECTIVE: She had some of breath last night, feels better this morning and had bowel movement this morning. OBJECTIVE: VITAL SIGNS: Temperature 97.6, pulse 97, respirations 20, O2 sat 93% on 2 liters, blood pressure 120 /71. HEENT: Unremarkable. NECK: No JVD. CHEST: Clear. CARDIAC: S1 and S2 regular. ABDOMEN: Soft, nontender. EXTREMITIES: No edema. LABORATORY DATA: Sodium 141, potassium 3.5, chloride 108, CO2 of 27, BUN 25, creatinine 0.7, glucose 94. ASSESSMENT: 1. Improved ischemic colitis. 2. Status post respiratory failure. PLAN: 1. Increase activity as tolerated. 2. Continue antibiotics as per General Surgery and Gastroenterology. 3. Schedule nebulization treatments.
--- NOTE | 2017-04-22 15:33 | PDOC.EVN ---
Event Note - Event Note Event Note: PT seen, consult dictated. Hospitalists following
--- NOTE | 2017-04-22 16:24 | SPC ---
LEFT UPPER EXTREMITY PICC PLACEMENT: 04/22/17 HISTORY: 82-year-old female with ischemic colitis in need of IV access/TPN. FINDINGS: Informed consent obtained prior to the procedure. The patient presented to the Radiology department with a functional left cephalic midline. The midlin e as well as the adjacent soft tissues were prepped and draped in the normal sterile fashion. The midline was utilized for venous access and removed. An 0.018 wire is advanced to the IVC, subsequ ently retracted to the cavoatrial junction. Intervascular length is calculated at 44 cm and the PICC is cut accordingly. A peel away sheath was placed. PICC was advanced over the wire. Wire and peel justice y sheath removed. A dual lumen PICC was placed, distal tip overlying the cavoatrial junction. Both po rts flush well and the catheter is ready for use. EXPOSURE DATA: 0.7 minutes of fluoroscopic time, 5452 mGy*cm2. IMPRESSION: Successful placement of a left upper extremity dual lumen PICC as above. POS: ANASTACIA
--- NOTE | 2017-04-22 17:09 | PRG ---
DATE OF SERVICE: 04/22/2017 SUBJECTIVE: I saw Ms. Pennington this morning with her daughters in attendance. She had just gotten out of bed and was feeling pretty good. She states that she is feeling better than yesterday, especiall y after getting up and moving around. She had a large bowel movement after getting up out of bed and also passed a fair amount of gas. She is still belching, but her nausea is little bit better. She is afebrile. Vital signs have been okay. Blood pressure has been slightly to moderately elevated. Heart rate is up a little bit today. Urine output has been alright. She has not taken much by mouth . BUN and creatinine are 25 and 0.78. This continues to improve. Abdominal films this morning show ed diffuse gaseous distention of the stomach, small bowel and colon and the pathology from the biopsy for colon was consistent with ischemic colitis. PHYSICAL EXAMINATION: Her abdomen is soft and nondistended, very minimally tender, more on the right than the left. Bowel sounds are present. ASSESSMENT: Multifactorial ileus following shock and ischemic colitis with lower gastrointestinal bl eed. She is clinically recovering well, but not taking adequate p.o. to support healing and unlikely to do so in the near future given her ileus. Since she is not actively nauseated and is having nicanor l movements and passing gas, I am not going to make her n.p.o., but I am also not going to advance he r diet. I have asked Radiology to place a PICC line for TPN and orders have been written for TPN. P T, OT and rehabilitation consults are in place as she will likely require additional rehab after her hospital stay.
--- NOTE | 2017-04-22 17:16 | PRG ---
DATE OF SERVICE: 04/22/2017 SUBJECTIVE: Ms. Pennington continues to slowly improve. No chest pain or pressure noted. She was seen about to ambulate. She was seen this morning. OBJECTIVE: VITAL SIGNS: Blood pressure 173/81, pulse 97. LUNGS: Clear to auscultation. HEART: Regular rate and rhythm. ABDOMEN: Soft, nontender, nondistended. EXTREMITIES: No edema. IMPRESSION: 1. Ischemic colitis. 2. Hypertension. 3. Abnormal stress study. RECOMMENDATIONS: I had a long discussion with the daughter today about the etiology to her ischemic colitis. This may be secondary to hypotension. She has struggled with hypotension over the last sev eral months. During her visit in January, we cut back on her lisinopril, hydrochlorothiazide, and N orvasc. Upon her followup office visit in February, her blood pressure and sinking spells had improv ed. We will continue to monitor blood pressures closely and make adjustments if needed. If she cont inues to have difficulty, may suggest a secondary cause.
--- NOTE | 2017-04-22 18:19 | PRG ---
DATE OF SERVICE: 04/22/2017 SUBJECTIVE: Ms. Pennington has had interval improvement in abdominal pain. There is no nausea; however, she really does not have much of an appetite at all. She is on clear liquids, but really does not f eel like eating or drinking anything still. She has been passing gas and had a small bowel movement this morning, but is certainly feeling bloated. She received a PICC line in anticipation of starting TPN tonight. PHYSICAL EXAMINATION: VITAL SIGNS: Temperature 97 degrees, pulse 95, blood pressure 177/86, 93% oxygen saturation on 2 lit ers nasal cannula. GENERAL: No acute distress. HEART: Regular rate and rhythm. LUNGS: Clear to auscultation bilaterally. ABDOMEN: Pcup-[id number] distention, tympanitic to percussion. Bowel sounds present, but hypoactiv e. Soft. Minimally tender to palpation in the lower abdomen. EXTREMITIES: No peripheral edema. LABORATORY STUDIES: Sodium 141, potassium 3.5, BUN 25, creatinine 0.78. ASSESSMENT: 1. Severe ischemic colitis, clinically improving. 2. Ileus, likely multifactorial secondary to ischemic colitis and bedbound state over the past week. 3. Coagulopathy, resolved. 4. Gastrointestinal bleeding, associated with ischemic colitis, resolved. PLAN: Dr. Rosales has kept her on clear liquids and is initiating TPN tonight. I agree with this as it does seem she has an ileus, but hopefully, her diet will be able to be advanced over the next few days. In the intermediate teacher, prognosis should be quite good with avoidance of further hypotensive episod es.
[2017-04-22 18:27] LABS: ALT (SGPT) 12 U/L (8-55); AST (SGOT) 16 U/L (5-34); Albumin 2.7 g/dL (3.4-4.8); Alkaline Phosphatase 50 U/L (40-150); Anion Gap 9 mmol/L (10-20); BUN (Urea Nitrogen) 22 mg/dL (9.8-20.1); Bilirubin, Total 0.8 mg/dL (0.2-1.2); Calc. Creatinine Clearance 105 mL/min (70-130); Calcium 8.4 mg/dL (7.8-10.44); Carbon Dioxide 26 mmol/L (23-31); Cardiac Risk 3.8 (Less than 4.5); Chloride 108 mmol/L (98-107); Cholesterol 83 mg/dl (< 200 Desired); Estimated GFR-MDRD 75; Globulin 1.9 g/dL (2.4-3.5); Glucose 98 mg/dL (83-110); HDL Cholesterol 22 mg/dL (>60 Neg Risk); LDL Cholesterol, Calculated 48 mg/dL; Phosphorus 2.3 mg/dL (2.3-4.7); Potassium 3.4 mmol/L (3.5-5.1); Protein, Total 4.6 g/dL (6.0-8.3); Sodium 140 mmol/L (136-145); Triglycerides 67 mg/dL (Less than 150)
--- NOTE | 2017-04-22 20:47 | PRG ---
DATE OF SERVICE: 04/22/2017. SUBJECTIVE: The patient was seen and examined. Seems to be doing much better, noted with the follow ing vital signs. OBJECTIVE: VITAL SIGNS: Afebrile, blood pressure 177/86, O2 sat 93%, pulse 95, respiratory rate of 18. HEENT: Unremarkable with moist oral mucosa. NECK: Supple. No conjunctival injection or icterus. CARDIOVASCULAR: First and second heart sounds were heard. RESPIRATORY: Clear to auscultation. DIGESTIVE: Revealed a benign abdomen with positive bowel sounds. EXTREMITIES: No peripheral edema. SKIN: No new gross rash. LYMPHATICS: No peripheral lymphadenopathy. IMPRESSION: 1. Acute on chronic kidney disease, which seems to be much improved. 2. Gastrointestinal bleed, followed by quality improvement consultant. PLAN: 1. Continue current renal supportive measures. 2. Renally dose all medications. 3. Avoid potential nephrotoxic agents. 4. Further management to be dependent on the clinical course.
[2017-04-22] MEDS: Multivitamins, Adult 10 ML, TRACE ELEMENT CONCENTRATE 1 ML in D30W-AA 10% with Lytes 2,... IV SCH (22:19)
[2017-04-23] MEDS ORDERED: Furosemide 20 MG/2 ML VIAL SLOW IVP SCH (03:15)
[2017-04-23 04:06] VITALS: BMI 37.2
[2017-04-23] MEDS ORDERED: Chloraseptic Spray 180 ml Bottle PO PRN (05:04)
[2017-04-23] MEDS ORDERED: diphenhydrAMINE 50 MG/ML VIAL IVP PRN (05:04)
[2017-04-23] MEDS: metroNIDAZOLE 500 MG in Premix Bag 1 BAG IVPB SCH ×4 (05:43→19:57)
--- NOTE | 2017-04-23 08:00 | RAD ---
PORTABLE CHEST 1 VIEW: Date: 04/23/17 Time: 0241 hours HISTORY: Respiratory distress. FINDINGS/IMPRESSION: Comparison made with exam dated 04/21/17. The heart size is enlarged, but stable. No lobar consolidation, pneumothoraces, or large effusions ar e seen. Plate of linear atelectasis in the left suprahilar region is again seen. There is a left uppe r extremity PICC line with tip in the projection of the SVC. POS: [facility]
[2017-04-23 08:06] LABS: #Eosinphils 0.1 thou/uL (0.0-0.7); #Lymphocytes 0.6 thou/uL (1.20-3.40); #Monocytes 0.7 thou/uL (0.11-0.59); %Basophils 0.2 % (0.0-1.0); %Eosinophils 2.2 % (0.0-10.0); %Monocytes 10.5 % (0.0-10.0); %Neutrophils 78.1 % (42.0-75.0); Hemoglobin 11.1 g/dL (12.0-16.0); Mean Corpuscular HGB CONC 31.5 g/dL (32.0-36.0); Mean Corpuscular Hemoglobin 28.3 pg (27.0-31.0); Mean Platelet Volume 8.2 fL (7.4-10.4); Platelet Count 157 thou/uL (130-400); RBC Distribution Width 13.2 % (11.5-14.5); Red Blood Cell (RBC) Count 3.93 mill/uL (4.20-5.40); White Blood Cell (WBC) Count 6.4 thou/uL (4.8-10.8)
--- NOTE | 2017-04-23 08:07 | RAD ---
SINGLE VIEW OF THE ABDOMEN: INDICATION: NG tube placement. COMPARISON: Prior study dated 04/23/17 at 2:44 a.m. and 04/22/17 at 7:17 a.m. FINDINGS: There is prominent gaseous distention of numerous small bowel loops within the abdomen. There is a g astric catheter projecting in the region of the distal gastric body. There are cholecystectomy clips within the right upper quadrant. Portions of the right hemiabdomen were excluded from the field of view. IMPRESSION: Persistent gaseous distention of numerous loops of bowel within the abdomen. An nasogastric tube tip projects in the region of the gastric antrum. POS: JAMIL
[2017-04-23 08:16] LABS: Magnesium 1.1 mg/dL (1.6-2.6); Phosphorus 2.3 mg/dL (2.3-4.7)
--- NOTE | 2017-04-23 08:16 | RAD ---
ABDOMEN 1 VIEW: HISTORY: Increased size of the abdomen. FINDINGS: There is air in loops of small and large bowel including the rectum. Some of the small bowel loops m ay be mildly dilated. There are degenerative changes in the spine. POS: JAMILH
[2017-04-23 08:19] LABS: Anion Gap 11 mmol/L (10-20); BUN (Urea Nitrogen) 19 mg/dL (9.8-20.1); Calc. Creatinine Clearance 100 mL/min (70-130); Calcium 8.8 mg/dL (7.8-10.44); Carbon Dioxide 24 mmol/L (23-31); Chloride 107 mmol/L (98-107); Estimated GFR-MDRD 78; Glucose 141 mg/dL (83-110); Potassium 3.1 mmol/L (3.5-5.1); Sodium 139 mmol/L (136-145)
[2017-04-23] MEDS ORDERED: CCU Electrolyte Replacement 1 EACH FS ONE (08:36)
[2017-04-23] MEDS ORDERED: Potassium Phosphate 15 MMOL in Sodium Chloride 0.9% 250 ML 250 ML IV PRN (08:55)
[2017-04-23] MEDS ORDERED: Magnesium Oxide 400 MG TAB PO PRN ×2 (08:55)
[2017-04-23] MEDS ORDERED: Potassium Chloride 20 MEQ TAB PO PRN (08:55)
[2017-04-23] MEDS ORDERED: CCU ELECTROLYTE REPLACEMENT PROTOCOL FS PRN (08:55)
[2017-04-23] MEDS ORDERED: Potassium Chloride 40 MEQ in Sodium Chloride 0.9% 250 ML 250 ML IVPB PRN (08:55)
[2017-04-23] MEDS ORDERED: Potassium Phosphate 12 MMOL in Sodium Chloride 0.9% 250 ML 250 ML IV PRN (08:55)
[2017-04-23] MEDS ORDERED: Potassium Chloride 40 MEQ in Premix Bag 1 BAG IVPB PRN (08:55)
[2017-04-23] MEDS ORDERED: Magnesium 2 GM/NS 0.9% 100 ML 2 GM in Premix Bag 1 BAG IVPB PRN (08:55)
[2017-04-23] MEDS ORDERED: Potassium Phosphate 9 MMOL in Sodium Chloride 0.9% 100 ML IVPB PRN (08:55)
[2017-04-23] MEDS ORDERED: Potassium Chloride 40 MEQ in Premix Bag 1 BAG IVPB SCH (09:00)
--- NOTE | 2017-04-23 09:02 | PRG ---
DATE OF SERVICE: 04/23/2017 SUBJECTIVE: Ms. Pennington had been moved back to the CCU last night. She developed an ileus and shortn ess of breath from profound distention and an NG tube was placed and she is now on low wall intermitt ent suction. She is complaining of abdominal distention. OBJECTIVE: VITAL SIGNS: Temperature is 98.0, pulse 94, blood pressure 144/57, and O2 sat 100% on 2 liters. Tot al intake for the last 24 hours 2468, output 2860. Weight 237 pounds. HEENT: Unremarkable. NECK: No JVD. LUNGS: Clear but distant breath sounds. CARDIAC: S1, S2 irregularly irregular, atrial fibrillation. ABDOMEN: Distended. Tympanic. EXTREMITIES: No clubbing, cyanosis, trace edema. LABORATORY DATA: White blood cell count 6.4, hemoglobin 11, hematocrit 35.4, and platelet count 157. Sodium 139, potassium 3.1, chloride 107, CO2 of 24, BUN 19, creatinine 0.7, glucose 148, calcium 8. 8, magnesium 1.1. Chest x-ray showed no mass, effusion or infiltrate. KUB showed a profound ileus. ASSESSMENT: 1. Ileus. 2. Electrolyte depletion with low magnesium and low potassium. 3. Atrial fibrillation with rapid ventricular response. PLAN: 1. Replace potassium and magnesium. 2. Frequent check of electrolytes. 3. Start Cardizem drip. 4. Cardiology consultation. 5. Continue generalized supportive care for ischemic colitis.
[2017-04-23] MEDS: Pantoprazole 40 MG VIAL IVP SCH (09:54)
--- NOTE | 2017-04-23 12:32 | PDOC.PN ---
- Subjective Encounter Start Date: 04/23/17 Encounter Start Time: 10:20 -: old records requested/rev Pt developed resp distress overnight, trnasferred back to the ICU. givne IV lasix for pulm edema - about 1500 out since then, brreathing much more comfortable this morning. Did have an episode of afib earlier, RVR at 133. Sumeet gave a single dos eof cadizem and pt spontaneously converted back to NSR, No CP, no SOB, belly distended and tight, no N/V, NGT in place. 10 point ROS performed and neg for all systems except as per hPI - Objective MAR Reviewed: Yes Vital Signs & Weight: Vital Signs (12 hours) Temp Pulse Resp BP Pulse Ox 04/23/17 11:14 90 28 H 100 04/23/17 08:04 133 H 28 H 96 04/23/17 08:00 98.4 F 133 H 28 H 100 04/23/17 04:14 98.0 F 98 22 H 98 04/23/17 04:00 98.0 F 04/23/17 03:25 98.4 F 94 34 H 142/88 H 98 04/23/17 02:28 96 Weight Admit Weight 229 lb 4.492 oz Weight 237 lb 10.533 oz Most Recent Monitor Data Heart Rate from ECG 87 NIBP 117/54 NIBP BP-Mean 72 Respiration from ECG 30 SpO2 100 I&O: 04/22/17 04/23/17 04/24/17 06:59 06:59 06:59 Intake Total 1666 2468 100 Output Total 1470 2860 360 Balance 196 -392 -260 Result Diagrams: 04/23/17 07:51 04/23/17 07:51 Additional Labs: Accuchecks 04/23/17 04/22/17 04/22/17 04:10 20:46 17:36 POC Glucose 144 H 96 92 Radiology Reviewed by me: Yes EKG Reviewed by me: Yes Phys Exam - Physical Examination Constitutional: NAD HEENT: PERRLA, moist MMs, sclera anicteric, oral pharynx no lesions Neck: no nodes, no JVD, supple, full ROM bilateral crackles posteriorly Cardiovascular: RRR, no significant murmur, no rub Gastrointestinal: soft distended, scant bowel sounds Musculoskeletal: edema present Neurological: non-focal, normal sensation, moves all 4 limbs Lymphatic: no nodes Psychiatric: normal affect, A&O x 3 Skin: no rash, normal turgor, cap refill <2 seconds Dx/Plan - Plan cont current plan of care, plan discussed w/ family, PT/OT, respiratory therapy , incentive spirometry, DVT proph w/lovenox * .
--- NOTE | 2017-04-23 13:31 | CON ---
DATE OF ADMISSION: 04/17/2017 DATE OF CONSULTATION: 04/23/2017 HISTORY OF PRESENT ILLNESS: Ms. Pennington is an 82-year-old woman who has been in the hospital critical ly ill with ischemic colitis. She has a long past medical history including congestive heart failure , coronary artery disease, obesity, previous myocardial infarction, diabetes mellitus, history of reema ast cancer, hypertension, and a questionable history of DVT. She is unable to be anticoagulated curr ently due to her ischemic colitis. She has foot compression devices in place. I have been asked to see her to discuss options for pulmonary embolism prophylaxis. PAST MEDICAL HISTORY: As above. PAST SURGICAL HISTORY: 1. Right modified radical mastectomy. 2. Bilateral knee replacements. 3. Cholecystectomy. 4. Appendectomy. ALLERGIES: PENICILLIN AND SULFA. CURRENT MEDICATIONS: Noted. SOCIAL HISTORY: She does not use tobacco. PHYSICAL EXAMINATION: GENERAL: Ms. Pennington is awake, alert, oriented without current complaint. VITAL SIGNS: Pulse is 85 and regular, blood pressure 139/60. Oxygen saturation is 98% on room air. HEENT: NG tube is in place with bilious aspirate. NECK: Supple. CHEST: Clear bilaterally. HEART: Rhythm is regular. ABDOMEN: Soft. EXTREMITIES: She has bilateral lower extremity edema from her mid abdomen down to her toes and foot compression devices are in place. ASSESSMENT AND PLAN: This is an 82-year-old woman who has bilateral lower extremity edema and is cri tically ill in the Intensive Care Unit. I would like to get a venous ultrasound of both legs. If annel priest has a DVT at this time, I would recommend discussing filter placement further with her. If her DVT scan is negative, then I would be reluctant to place a filter in this situation.
[2017-04-23] MEDS: Diltiazem 125 MG in Sodium Chloride 0.9% 100 ML IVPB SCH (13:45)
[2017-04-23] MEDS ORDERED: Heparin 1,000 UNITS/ML VIAL ONE (14:00)
--- NOTE | 2017-04-23 15:30 | ULT ---
DOPPLER VENOUS ULTRASOUND OF BOTH LOWER EXTREMITIES: INDICATION: History of prolonged bed rest with bilateral lower extremity edema. TECHNIQUE: Pandya scale, color Doppler, and vascular duplex with spectral analysis was performed of the deep venou s structures of both lower extremities. The common femoral vein, superficial femoral vein, popliteal vein, posterior tibial vein, proximal greater saphenous, and proximal profunda veins were assessed bi laterally. FINDINGS: Normal compression, flow, and augmentation is seen within the deep venous structures of both lower ex tremities. IMPRESSION: No evidence of deep vein thrombosis within both lower extremities. POS: ANASTACIA
[2017-04-23 15:45] VITALS: BP 145/64
--- NOTE | 2017-04-23 15:55 | PRG ---
DATE OF SERVICE: 04/23/2017 GI INPATIENT DAILY PROGRESS NOTE SUBJECTIVE: Ms. Pennington had somewhat acute worsening of shortness of breath and abdominal distention. Overnight, she was found to be in atrial fibrillation with rapid rates and have fluid overload. Nahun priest was transferred back to the ICU. She did not have to be intubated. She is now back in sinus rhyth m. A nasogastric tube was placed and is now on low intermittent suction. Abdominal x-rays demonstra juan dilation of stomach and multiple small bowel loops consistent with her ileus. Currently, she is feeling a bit better, not nauseated. Also, no appetite. PHYSICAL EXAMINATION: VITAL SIGNS: Pulse 88, blood pressure 139/60, 100% oxygen saturation on 2 liters nasal cannula, temp erature is 98.4. GENERAL: Sitting up in chair comfortably in no distress. Nasogastric tube in place. HEART: Back in sinus rhythm. Rhythm was regular. LUNGS: Clear to auscultation bilaterally. ABDOMEN: Moderately distended, tympanitic to percussion. Soft. Minimal tenderness to palpation thr oughout. No guarding, rebound tenderness. EXTREMITIES: No peripheral edema. LABORATORY STUDIES: WBC 6.4, hemoglobin 11.1, and platelets 157. Sodium 139, potassium 3.1, BUN 19, creatinine 1.71 and glucose 141. ASSESSMENT AND PLAN: 1. Severe ischemic colitis, left colon. 2. Ileus. The patient's ileus seems to have worsened over the past day. Continue with TPN. Nasoga stric tube is to suction and she is currently feeling well. Await return of bowel function. Otherwi se, continue supportive measures. Dr. Da Silva is covering for GI this weekend.
--- NOTE | 2017-04-23 16:56 | PRG ---
DATE OF SERVICE: 04/23/2017 SUBJECTIVE: Ms. Pennington recently was transferred to the ICU due to increased shortness of breath. Sh zayda also developed atrial fibrillation with rapid ventricular response. She has also developed an ileu s. She is currently stable. She has reverted back to sinus rhythm. She was given IV Lasix with mar ked improvement. OBJECTIVE: VITAL SIGNS: Blood pressure 139/60, pulse 88, temperature afebrile. LUNGS: Clear to auscultation. CARDIAC: Regular rate and rhythm. ABDOMEN: Soft, nontender. EXTREMITIES: 1+ pitting edema. PERTINENT LABORATORY DATA: Hemoglobin 11.1. Creatinine 0.71. IMPRESSION: 1. Acute shortness of breath, now resolved. 2. Atrial fibrillation with rapid ventricular response, now resolved. 3. Ischemic colitis. 4. Abnormal stress study. RECOMMENDATIONS: I had a long discussion again with the daughter. One of the etiology to her curren t ischemic colitis may be paroxysmal atrial fibrillation, although her atrial fibrillation likely is related to her underlying condition. She has improved. Continue NG tube for ileus. Her blood press ure appears stable on current treatment.
[2017-04-23] MEDS: Ondansetron HCl/PF 4 MG/2 ML Vial IVP PRN (21:16)
[2017-04-23] MEDS: Multivitamins, Adult 10 ML, TRACE ELEMENT CONCENTRATE 1 ML in D30W-AA 10% with Lytes 2,... IV SCH (21:39)
[2017-04-23] MEDS: Lorazepam 2 MG/ML VIAL SLOW IVP PRN (21:50)
[2017-04-23] MEDS: Insulin Regular 300 UNITS/3 ML VIAL SC PRN (22:10)
--- NOTE | 2017-04-23 23:49 | PRG ---
DATE OF SERVICE: 04/23/2017 SUBJECTIVE: Ms. Pennington is feeling a little better this morning. She states that she is breathing better. She denies any abdominal pain, but she does feel bloated and uncomfortable. She is not nauseated since placement of the NG tube. She was transferred to the CCU last night due to tachypnea, shortness of breath, increasing abdominal distention. An NG tube was placed, but has not had much output. It is in good position on KUB. She still has gaseous distention of the bowel. She went into atrial fibrillation with rapid ventricular response this morning and Dr. Fay started her on Cardizem drip. Heart rate has been varying somewhat, but mostly in the 90s to 100s, blood pressure is slightly elevated. She is maintaining her sats and her respiratory rate is down into the 20's. She was given a dose of Lasix last night and had about 650 mL of urine output after that. Her NG tube has put out about 100 when I saw her this morning. White count is normal. H and H have gone up little bit after diuresis. Potassium was low and electrolyte replacement was ordered. Magnesium also was low at 1.1. PHYSICAL EXAMINATION: Her abdomen is distended and tympanitic, not tender to palpation. Bowel sounds are diminished. She has some crackles laterally, but it is clear anteriorly. ASSESSMENT: Respiratory distress last night likely a combination of fluid overload and gaseous distention of the abdomen from her ileus and she has been made n.p.o. and NG tube has been placed. She has passed some gas since that time and is feeling a little better. Her stomach is decompressed on KUB after placement of the NG tube, but she still has large amount of gaseous distention of the small intestine. We will likely just have to wait this out. Electrolyte replacement has been ordered. I am concerned about her nutritional status. Prealbumin was low and TPN has been started as it may be some time before she can tolerate adequate p.o. I am also concerned about her mobility. She is quite weak. Physical therapy was able to get her up to a chair, but she is not really ambulating and I am hesitant to anticoagulate her. I have asked Cardiovascular Surgery talked to her about possible IVC filter. Dr. Garnica came by and talked to the family and they decided that they wanted to stick with SCDs as long she does not have any DVT on venogram, which she did not. Dr. Houston is going to follow her over the weekend. Hopefully, she will slowly improve with conservative management as she is a poor operative candidate. JUANJO
[2017-04-24] MEDS: metroNIDAZOLE 500 MG in Premix Bag 1 BAG IVPB SCH ×4 (02:06→20:29)
[2017-04-24 04:25] LABS: #Eosinphils 0.3 thou/uL (0.0-0.7); #Lymphocytes 0.7 thou/uL (1.20-3.40); #Monocytes 0.9 thou/uL (0.11-0.59); #Neutrophils 4.5 thou/uL (1.40-6.50); %Basophils 0.1 % (0.0-1.0); %Eosinophils 5.1 % (0.0-10.0); %Lymphocytes 10.9 % (21.0-51.0); %Monocytes 13.5 % (0.0-10.0); %Neutrophils 70.4 % (42.0-75.0); Mean Corpuscular HGB CONC 32.4 g/dL (32.0-36.0); Mean Corpuscular Hemoglobin 29.1 pg (27.0-31.0); Mean Platelet Volume 8.4 fL (7.4-10.4); Platelet Count 163 thou/uL (130-400); RBC Distribution Width 13.2 % (11.5-14.5); Red Blood Cell (RBC) Count 3.44 mill/uL (4.20-5.40); White Blood Cell (WBC) Count 6.4 thou/uL (4.8-10.8)
[2017-04-24 04:50] LABS: ALT (SGPT) 9 U/L (8-55); AST (SGOT) 15 U/L (5-34); Albumin 2.5 g/dL (3.4-4.8); Alkaline Phosphatase 42 U/L (40-150); Anion Gap 7 mmol/L (10-20); BUN (Urea Nitrogen) 19 mg/dL (9.8-20.1); Bilirubin, Total 0.7 mg/dL (0.2-1.2); Calc. Creatinine Clearance 105 mL/min (70-130); Calcium 8.8 mg/dL (7.8-10.44); Carbon Dioxide 29 mmol/L (23-31); Chloride 109 mmol/L (98-107); Estimated GFR-MDRD 82; Globulin 1.9 g/dL (2.4-3.5); Glucose 185 mg/dL (83-110); Magnesium 1.5 mg/dL (1.6-2.6); Phosphorus 2.3 mg/dL (2.3-4.7); Potassium 3.3 mmol/L (3.5-5.1); Protein, Total 4.4 g/dL (6.0-8.3); Sodium 142 mmol/L (136-145)
[2017-04-24] MEDS: Insulin Regular 300 UNITS/3 ML VIAL SC PRN ×3 (05:16→18:55)
[2017-04-24] MEDS ORDERED: Magnesium Sulfate 4 GM in Sodium Chloride 0.9% 250 ML 250 ML IVPB SCH (08:30)
--- NOTE | 2017-04-24 08:34 | PRG ---
DATE OF SERVICE: 04/24/2017 SUBJECTIVE: I am seeing Ms. Pennington on behalf of Dr. Rosales from surgical standpoint. The patient i s awake and alert. She has a nasogastric tube in place, which has returned approximately 200 mL of b ile-tinged fluid since yesterday. The patient denies any flatus. She reports markedly improved abdo shanell pain. The urinary output has been adequate. OBJECTIVE: VITAL SIGNS: Currently includes blood pressure 144/70, pulse is 84, respiratory rate is 19. Maximum temperature in the last 24 hours is 97.6 degrees Fahrenheit, oxygen saturation is 98% on room air. HEENT EXAMINATION: Reveals normocephalic and atraumatic. She has no jugular venous distention noted . HEART: Reveals regular rate and rhythm. LUNGS: Clear to auscultation bilaterally. Breathing regular and unlabored. ABDOMEN: Soft and markedly distended with gas. She has mild tenderness to palpation with no gross r ebound tenderness present. Bowel sounds is hypoactive in all 4 quadrants. NEUROLOGICAL EXAMINATION: Reveals no focal deficits present. LABORATORY DATA: I reviewed the abdominal x-ray obtained yesterday, which is remarkable for multiple distended loops of small and large bowel with gas. LABORATORY FINDINGS: Today includes a CBC with 6400 white blood cells, hemoglobin and hematocrit sta ble at 10.0 and 30.9 respectively. Platelet count 163,000. Metabolic profile today, sodium 142, pot assium 3.3, chloride is 109, bicarbonate is 29, BUN 19, creatinine 0.68, glucose 185, magnesium 1.5, phosphorus is 2.3. IMPRESSION: 1. Resolving ischemic colitis. 2. Adynamic ileus. 3. Acute hypokalemia. 4. Acute hypomagnesemia. PLAN: 1. There is no acute surgical indication for this patient at this time. 2. We will continue with conservative management including bowel rest, nasogastric tube decompressio n, and TPN. 3. Correct abnormal electrolytes. 4. We will start patient on neostigmine subcutaneously and monitor for resolution of the ileus. Above findings and plan discussed with the patient in the presence of her nurse. She indicates under standing of information given.
[2017-04-24] MEDS: Pantoprazole 40 MG VIAL IVP SCH (08:48)
[2017-04-24] MEDS ORDERED: Neostigmine 0.5 MG in Pre-Filled Syringe 1 EACH SC SCH (12:00)
[2017-04-24] MEDS ORDERED: Potassium Chloride 40 MEQ in Premix Bag 1 BAG IVPB SCH (13:00)
--- NOTE | 2017-04-24 13:08 | PRG ---
DATE OF SERVICE: 04/24/2017 SERVICE: Pulmonary Medicine. INTERVAL HISTORY: The patient is doing okay from a respiratory standpoint. This morning, she got up into a neuro chair for total of 4 hours. She is breathing very comfortably during that event. When she got put back to bed, she noticed that she has slightly increased work of breathing. She is pass ing some gas, but otherwise no bowel movements. She remains n.p.o. There has been no interval orellana e to her condition. No events reported overnight. PHYSICAL EXAMINATION: VITAL SIGNS: Afebrile, pulse 82, blood pressure 147/67, respirations 27, saturation 100% on 2 liters nasal cannula. GENERAL: Patient is awake, alert, no apparent distress. LUNGS: Decent air entry. Dependent crackles and rhonchi are present. There is expiratory wheezing identified. HEART: Normal rate and regular. MUSCULOSKELETAL: No cyanosis or clubbing. There is 1-2+ pitting at the sacrum and trace pitting at bilateral lower extremities. GENITOURINARY: Harris catheter in place. NEUROLOGIC: Grossly nonfocal. LABORATORY DATA: WBC 6.4, hemoglobin 10.0, and platelets 163,000. INR 1.3. Creatinine 0.67. Potas sium 3.3. Basic metabolic profile and liver function studies are otherwise unremarkable. Magnesium is 1.5 and phosphorus 2.3. C. diff antigen and toxin were previously unremarkable. Stool culture is unremarkable today. Toxins for Shiga is negative. Campylobacter is positive. ASSESSMENT AND PLAN: 1. Acute hypoxic respiratory failure. 2. Ileus. 3. Atrial fibrillation with rapid ventricular response. 4. Ischemic colitis. 5. Campylobacter antigen is abnormal. PLAN: Supportive care and aggressive mobilization efforts will be continued. We will continue repla cing her potassium and magnesium. Repeat levels will be obtained tomorrow morning. Nebulize medicat ions will be continued on a scheduled basis q.6 hours. Pulmonary will continue to follow while she r yaseminins in this location.
[2017-04-24] MEDS: Lorazepam 2 MG/ML VIAL SLOW IVP PRN ×3 (13:15→22:30)
[2017-04-24] MEDS: Diltiazem 125 MG in Sodium Chloride 0.9% 100 ML IVPB SCH (14:32)
[2017-04-24] MEDS ORDERED: Furosemide 20 MG/2 ML VIAL SLOW IVP SCH (15:00)
--- NOTE | 2017-04-24 15:49 | PDOC.PN ---
- Subjective Encounter Start Date: 04/24/17 Encounter Start Time: 12:00 Pt just back to bed, was apparently up to chair for severla hours. Winded form transfer, no F/C, no N/V/D/C. BP has been better, no further Afib. case discussed with Dr Fay face to face. No acute overnight event per nursing. 10 point ROS performed and neg for all systems except as above - Objective MAR Reviewed: Yes Vital Signs & Weight: Vital Signs (12 hours) Temp Pulse Resp Pulse Ox 04/24/17 15:00 97.8 F 04/24/17 14:44 90 29 H 94 L 04/24/17 12:45 93 21 H 97 04/24/17 12:00 98.3 F 04/24/17 08:00 98.1 F 83 26 H 100 04/24/17 04:23 96 04/24/17 04:00 98.1 F Weight Admit Weight 229 lb 4.492 oz Weight 237 lb 10.533 oz Most Recent Monitor Data Heart Rate from ECG 90 NIBP 147/67 NIBP BP-Mean 91 Respiration from ECG 29 SpO2 94 I&O: 04/23/17 04/24/17 04/25/17 06:59 06:59 06:59 Intake Total 2468 2050.2 550 Output Total 2860 1920 460 Balance -392 130.2 90 Result Diagrams: 04/24/17 03:30 04/24/17 03:30 Additional Labs: Accuchecks 04/24/17 04/23/17 04/23/17 10:25 22:08 17:44 POC Glucose 153 H 163 H 151 H Radiology Reviewed by me: Yes EKG Reviewed by me: Yes Phys Exam - Physical Examination Constitutional: NAD chronically ill-appearing. Obese HEENT: PERRLA, moist MMs, sclera anicteric, oral pharynx no lesions Neck: no nodes, no JVD, supple, full ROM prolonged expiration, faint wheezes, R>L Cardiovascular: RRR, no significant murmur, no rub Gastrointestinal: soft, non-tender, no distention, positive bowel sounds BS scant, but present, no R/r/G Musculoskeletal: edema present Neurological: non-focal, normal sensation, moves all 4 limbs Lymphatic: no nodes Psychiatric: normal affect, A&O x 3 Skin: no rash, normal turgor, cap refill <2 seconds Dx/Plan (1) Paroxysmal A-fib Code(s): I48.0 - PAROXYSMAL ATRIAL FIBRILLATION Status: Acute Comment: resolved fornow. watch on tele (2) Ischemic colitis Code(s): K55.9 - VASCULAR DISORDER OF INTESTINE, UNSPECIFIED Status: Acute Comment: NGT in place, on TPN. Surgery, GI following (3) Acute respiratory failure with hypoxemia Code(s): J96.01 - ACUTE RESPIRATORY FAILURE WITH HYPOXIA Status: Resolved Comment: Pulm, cards following (4) Septic shock Code(s): A41.9 - SEPSIS, UNSPECIFIED ORGANISM; R65.21 - SEVERE SEPSIS WITH SEPTIC SHOCK Status: Resolved (5) Chest pain Code(s): R07.9 - CHEST PAIN, UNSPECIFIED Status: Resolved Qualifiers: Chest pain type: unspecified Qualified Code(s): R07.9 - Chest pain, unspecified - Plan cont current plan of care, plan discussed w/ family, continue antibiotics, PT/OT , respiratory therapy, incentive spirometry, DVT proph w/lovenox * .
--- NOTE | 2017-04-24 16:54 | PRG ---
DATE OF SERVICE: 04/24/2017 SUBJECTIVE: Ms. Pennington sat up in the chair for several hours today. She has less abdominal discomfo rt than she did yesterday. She is passing gas from her rectum today. OBJECTIVE: VITAL SIGNS: Blood pressure 157/66, pulse 84, temperature is 97.8. IMPRESSION: 1. Severe ischemic colitis. She had severe colitis and necrotic appearing mucosa in the left colon circumferentially. I expect that the ileus related to this will take some time to resolve and her pa in will take some time to resolve as well with the degree of colitis that she had. This can take a c ouple of weeks. She is starting to pass air from her rectum today. She is on TPN for nutrition. Nahun priest has an NG tube to suction and this potentially could be stopped tomorrow. I would hold off the delaney stigmine now due to the severity of the colitis and also her respiratory difficulties. 2. Her campylobacter antigen came back positive from the stool. This could be a false positive; how ever, she could have had a true positive that contributed to the onset of ischemic colitis in the [facility]. She has been on levofloxacin, which should cover this adequately. The culture has not mraylu wn out anything to suggest changing antibiotics at this point. RECOMMENDATIONS: Continue supportive care with TPN and bowel rest. She is starting to pass air from her rectum today and her abdominal pain is improving. We could likely discontinue the NG tube tomor row and we should see slow progression over the next several days to a week.
[2017-04-24] MEDS: Multivitamins, Adult 10 ML, TRACE ELEMENT CONCENTRATE 1 ML in D30W-AA 10% with Lytes 2,... IV SCH (22:50)
[2017-04-25] MEDS: metroNIDAZOLE 500 MG in Premix Bag 1 BAG IVPB SCH ×2 (01:17→07:40)
[2017-04-25] MEDS: Insulin Regular 300 UNITS/3 ML VIAL SC PRN ×2 (01:21→06:10)
[2017-04-25] MEDS: Lorazepam 2 MG/ML VIAL SLOW IVP PRN ×3 (03:10→07:40)
[2017-04-25] MEDS: Pantoprazole 40 MG VIAL IVP SCH (08:30)
[2017-04-25] MEDS ORDERED: Furosemide 20 MG/2 ML VIAL SLOW IVP SCH (09:00)
--- NOTE | 2017-04-25 12:10 | PRG ---
DATE OF SERVICE: 04/25/2017 SERVICE: Pulmonary Medicine. INTERVAL HISTORY: The patient is doing really well from a respiratory standpoint. She denies any cu rrent fevers, chills, nausea or vomiting. Otherwise, there has been no interval change to her condit ion. Her abdominal discomfort is a little bit improved. She is passing some gas per rectum. There were multiple conversations that were had with family members yesterday. Ultimately, the patient's f matthias has decided transition her over to comfort care only. This is going to happen at some point to day. The family's expectations are that at some point over the next couple of weeks, the patient coy l likely succumb to this illness. We did discuss stopping TPN, not attempting tube feeds. Once this approach is firmed up, we will work on getting her out of the ICU. PHYSICAL EXAMINATION: VITAL SIGNS: Afebrile, pulse 117, blood pressure 107/67, respirations 40 and saturation 89% on 3 lit ers nasal cannula. GENERAL: The patient is somnolent. She wakes up, but drifts off to sleep without significant stimul ation. HEART: Normal rate and regular. LUNGS: Rhonchi are present bilaterally. She has a weak cough. There is no prolonged expiratory pha se or wheezing appreciated. HEART: Normal rate and regular. ABDOMEN: Soft, nontender and nondistended. Bowel sounds are positive. MUSCULOSKELETAL: No cyanosis or clubbing. There is 1-2+ pitting in the sacrum, but minimal pitting in the lower extremities. NEUROLOGIC: Grossly nonfocal. GENITOURINARY: Harris catheter in place. LABORATORY DATA: WBC 6.4, hemoglobin 10.0 and platelets 163,000. Blood sugars ranged from 153-196. Urine cultures growing gram-negative julianne. Campylobacter antigen is positive. Outside of this, all culture results are negative. ASSESSMENT: 1. Acute hypoxic respiratory failure. 2. Ileus. 3. Atrial fibrillation with rapid ventricular response. 4. Ischemic colitis. DISCUSSION AND PLAN: The patient's family has made a decision to transition over to comfort care onl y. is expected by them over the coming weeks if not months. Palliative care consultation will likely prompt hospice evaluation today. Once everything is in place, the patient can transition out of the ICU to home based on family preferences.
[2017-04-25] MEDS ORDERED: Lorazepam 2 MG/ML VIAL SLOW IVP PRN (13:06)
--- NOTE | 2017-04-25 14:12 | PDOC.PN ---
- Subjective Encounter Start Date: 04/25/17 Encounter Start Time: 11:20 -: non-verbal Pt actively dying. makayla family noble weiss she was tired and didnt want to go on. arrangements being made to go to comfort care. I have conformed with family and they agreed. IVfluids, TPN, NGT discontinued. Pt with guppy breatihng, unreponsive, surrounded by family - Objective Resuscitation Status: Resuscitation Status DNR:Do Not Resuscitate MAR Reviewed: Yes Vital Signs & Weight: Vital Signs (12 hours) Temp Pulse Resp Pulse Ox 04/25/17 12:00 98.6 F 04/25/17 08:00 97.8 F 102 H 33 H 90 L 04/25/17 04:00 98.9 F Weight Admit Weight 229 lb 4.492 oz Weight 250 lb 0.067 oz Most Recent Monitor Data Heart Rate from ECG 82 NIBP 122/70 NIBP BP-Mean 92 Respiration from ECG 38 SpO2 97 I&O: 04/24/17 04/25/17 04/26/17 06:59 06:59 06:59 Intake Total 2050.2 3065.6 633 Output Total 1920 2510 225 Balance 130.2 555.6 408 Result Diagrams: 04/24/17 03:30 04/24/17 03:30 Additional Labs: Accuchecks 04/25/17 04/25/17 04/25/17 10:37 05:47 00:17 POC Glucose 167 H 196 H 158 H 04/24/17 18:31 POC Glucose 159 H Phys Exam - Physical Examination mild resp distress coarse rales bialterally tachy, regular Musculoskeletal: edema present Dx/Plan (1) Paroxysmal A-fib Code(s): I48.0 - PAROXYSMAL ATRIAL FIBRILLATION Status: Acute (2) Ischemic colitis Code(s): K55.9 - VASCULAR DISORDER OF INTESTINE, UNSPECIFIED Status: Acute (3) Acute respiratory failure with hypoxemia Code(s): J96.01 - ACUTE RESPIRATORY FAILURE WITH HYPOXIA Status: Resolved Comment: tino Cox following (4) Septic shock Code(s): A41.9 - SEPSIS, UNSPECIFIED ORGANISM; R65.21 - SEVERE SEPSIS WITH SEPTIC SHOCK Status: Resolved (5) Chest pain Code(s): R07.9 - CHEST PAIN, UNSPECIFIED Status: Resolved Qualifiers: Chest pain type: unspecified Qualified Code(s): R07.9 - Chest pain, unspecified - Plan * . to comfort care. d/c NG tube, IV fluids, TPN, all but comfort meds. Pulm CC and cards following. Will sign off
--- NOTE | 2017-04-25 16:00 | PRG ---
DATE OF SERVICE: 04/25/2017 SUBJECTIVE: I evaluated Ms. Aquino earlier this morning. She developed worsening respiratory status last night. She has agonal breathing now and will not survive. Her abdomen is soft. She is not res ponsive. Her lungs have coarse breath sounds. IMPRESSION: 1. Ischemic colitis. 2. Worsening respiratory failure. PLAN: She is comfort care and her family is at the bedside.
--- NOTE | 2017-04-25 17:53 | PRG ---
DATE OF SERVICE: 04/25/2017 The patient is seen, not doing well. The patient is being been transitioned over to comfort care. T herefore, as a result, we will sign off on this case. There is no further indication for renal suppo rtive treatment in this patient who has been transitioned over to comfort care.
--- NOTE | 2017-04-25 17:57 | CON ---
DATE OF SERVICE: 04/25/2017 Unfortunately, Ms. Pennington's status has markedly diminished. She had significant increase in respirat ory needs. She underwent BiPAP, required more respiratory support. She refused intubation. She was intubated. Upon arrival one week ago and has been adamant about reintubation. I had a long discussion with the family today about the event that had transpired. Her blood pressur e has been stable on IV Cardizem. She currently is satting well, but appears to be moving very littl e air. It does not appear Ms. Pennington is going to survive her most recent insult. All questions with the rick junior were answered. She will likely stay in the ICU for a day or two. If she continues, then will be transferred to medical or inpatient hospice. Otherwise, I have no further recommendations. I did s pend 35 minutes with the family as described.
[2017-04-25 20:37] VITALS: TEMP 99.1
[2017-04-25] MEDS ORDERED: Haloperidol Lactate 5 MG/ML VIAL IM SCH (21:00)
--- NOTE | 2017-04-25 22:01 | PRG ---
DATE OF SERVICE: 04/25/2017 SUBJECTIVE: An 82-year-old woman with recently diagnosed ischemic colitis. The patient had adynamic ileus, which apparently is resolving. The patient became quite restless las t night, as a result received some anxiolytics. According to the patient's daughter, the patient has been relatively aphasic since after midnight. I saw this patient late this afternoon, at that time the patient's Loretta coma scale was noted at E2 M5 V2. Vital signs, however, had remained quite stable. The patient did not have any focal neurolo gic deficit nevertheless. OBJECTIVE: VITAL SIGNS: Included blood pressure 137/67, pulse 98, respiratory rate was 27, oxygen saturation 99 % on nasal cannula oxygen at 3 liters. HEENT EXAMINATION: Reveals normocephalic and atraumatic. Pupils were equal, round, and reactive to light and accommodation. HEART: Revealed a regular rate. LUNGS: Were clear to auscultation bilaterally though shallow respiration and tachypneic, but unlabor ed. ABDOMEN: Soft and moderately distended. Bowel sounds were audible in all 4 quadrants, when ausculta juan. IMPRESSION: 1. Acute metabolic encephalopathy. 2. Residual adynamic ileus, albeit resolving. 3. Recent ischemic colitis. Family had initiated comfort care measures and patient is being evaluated by palliative care. There remains no acute surgical indication for this patient at this time. Recommend ongoing medical manage ment.
--- NOTE | 2017-05-13 22:08 | DIS ---
DATE OF ADMISSION: 04/17/2017 DATE OF : 04/25/2017 FINAL DIAGNOSES: 1. Ischemic colitis. 2. Hemorrhagic shock. 3. Hypertension. 4. Hyperlipidemia. 5. Respiratory failure. 6. Encephalopathy. HISTORY: Ms. Pennington was an 82-year-old woman who was in her usual state of health until the morning of her admission when she called a friend complaining of feeling weak. She was unable get up to go t o the bathroom on her own, so her friend came to the house and tried to help her, but she collapsed a nd EMS was called. She was taken to the local ER, where she had multiple bloody bowel movements and became progressively more unstable. She was transferred emergently to [facility], where she was maintained on a ventilator with pressors. She was severely coagulopathic and hypotensive requir ing high doses of Levophed to maintain her blood pressure. She was also anuric and had a significant metabolic acidosis. It was felt that her most likely diagnosis was ischemic colitis, but she was to o unstable for surgery, so she was maintained in the CCU overnight and resuscitated aggressively with blood products plasma, cryoprecipitate and pressors. She improved overnight and did not have any si gnificant further bleeding. She had very minimal abdominal pain or tenderness, so the decision was m jayson to manage her conservatively. She underwent a gentle bowel prep and colonoscopy, which confirmed findings of ischemic colitis, but no full-thickness necrosis was noted and the patient continued to clinically improve. She was transferred to telemetry, but developed an ileus and some respiratory di stress and was transferred back to the CCU. NG tube was placed and she was maintained on bowel rest for her ileus; however, she began to clinically decline again and became confused. She had previousl y told her family that she did not wish to be reintubated or treated aggressively, so they decided to provide comfort care only. Her respiratory failure in encephalopathy progressed and she .
== END 2017-04-25 22:50 | disposition expired | DRG 871 ==
LOC: ERS 12:27 → CCU 15:57 → 2NO 04-21 19:54 → CCU 04-23 03:40
PROVIDERS: ADMIT Family Medicine; ATTEND Surgery
PROC: 5A1945Z Respiratory Ventilation, 24-96 Consecutive Hours (ICD-10-PCS; 2017-04-17)
PROC: 03HY32Z Insertion of Monitoring Device into Upper Artery, Percutaneous Approach (ICD-10-PCS; 2017-04-17)
PROC: 30233N1 Transfusion of Nonautologous Red Blood Cells into Peripheral Vein, Percutaneous Approach (ICD-10-PCS; 2017-04-17)
PROC: 0DJ08ZZ Inspection of Upper Intestinal Tract, Via Natural or Artificial Opening Endoscopic (ICD-10-PCS; principal; 2017-04-19)
PROC: 0DBN8ZX Excision of Sigmoid Colon, Via Natural or Artificial Opening Endoscopic, Diagnostic (ICD-10-PCS; 2017-04-19)
PROC: 0DBM8ZX Excision of Descending Colon, Via Natural or Artificial Opening Endoscopic, Diagnostic (ICD-10-PCS; 2017-04-19)
PROC: 0D9N8ZX Drainage of Sigmoid Colon, Via Natural or Artificial Opening Endoscopic, Diagnostic (ICD-10-PCS; 2017-04-19)
PROC: 02HV33Z Insertion of Infusion Device into Superior Vena Cava, Percutaneous Approach (ICD-10-PCS; 2017-04-22)
PROC: 3E0336Z Introduction of Nutritional Substance into Peripheral Vein, Percutaneous Approach (ICD-10-PCS; 2017-04-23)
DX: A41.9 Sepsis, unspecified organism (principal); J96.01 Acute respiratory failure with hypoxia; D65 Disseminated intravascular coagulation [defibrination syndrome]; K55.039 Acute (reversible) ischemia of large intestine, extent unspecified; G93.41 Metabolic encephalopathy; I95.9 Hypotension, unspecified; K63.3 Ulcer of intestine; R65.21 Severe sepsis with septic shock; R57.1 Hypovolemic shock; D68.9 Coagulation defect, unspecified; K56.0 Paralytic ileus; E87.2 Acidosis; N39.0 Urinary tract infection, site not specified; I45.2 Bifascicular block; N17.9 Acute kidney failure, unspecified; Z51.5 Encounter for palliative care; Z66 Do not resuscitate; R34 Anuria and oliguria; Z85.3 Personal history of malignant neoplasm of breast; E87.6 Hypokalemia; E83.42 Hypomagnesemia; Z74.01 Bed confinement status; I25.10 Atherosclerotic heart disease of native coronary artery without angina pectoris; I25.2 Old myocardial infarction; H54.62 Unqualified visual loss, left eye, normal vision right eye; Z86.718 Personal history of other venous thrombosis and embolism; I48.0 Paroxysmal atrial fibrillation; I12.9 Hypertensive chronic kidney disease with stage 1 through stage 4 chronic kidney disease, or unspecified chronic kidney disease; E11.22 Type 2 diabetes mellitus with diabetic chronic kidney disease; N18.9 Chronic kidney disease, unspecified; E78.5 Hyperlipidemia, unspecified; R57.8 Other shock
CPT/HCPCS: 36415; 36416; 36556; 36569; 71045; 74018; 74019; 80048; 80053; 80061; 81003; 81015; 82805; 83605; 83735; 84100; 84134; 84443; 85025; 85049; 85300; 85362; 85379; 85384; 85610; 85730; 86850; 86900; 86901; 87045; 87046; 87070; 87076; 87086; 87205; 87324; 87449; 87899; 88305; 93005; 93010; 93970; 94002; 94003; 94660; 96365; 96366; 96368; 96375; 96376; A4216; C1751; C9113; G8978-GP-CM; G8979-GP-CI; G8987-GO-CL; G8988-GO-CJ; G9165-GN-CJ; G9166-GN-CI; J0171; J1200; J1630; J1644; J1720; J1815; J1940; J1956; J2060; J2250; J2270; J2405; J2710; J3010; J3475; J3480; J7050; J7070; J7620; P9012; P9016; P9048; P9059